=== PATIENT | female | born 1950 | race Caucasian/White ===

== ENCOUNTER 2019-04-21 12:53 | Inpatient (IN) | payer BC ==
[~2019-04-21] VITALS: Ht 162.6 cm; Wt 88.8 kg
[2019-04-21] MEDS ORDERED: ASPIRIN CHEWABLE 81 MG TABLET. PO ONE (15:00)
[2019-04-21 15:13] LABS: BASO % 0 % (0-3); EOS % 0 % (0-3); HEMATOCRIT 37.9 % (36.0-47.0); HEMOGLOBIN 12.9 g/dL (12.0-15.5); LYMPH # 1.2 x10^3/uL (1.0-4.8); LYMPH % 11 % (24-48); MEAN CORPUSCULAR HEMOGLOBIN 28 pg (25-35); MEAN CORPUSCULAR HGB CONC 34 g/dL (31-37); MEAN CORPUSCULAR VOLUME 82 fL (79-100); MONO # 0.5 x10^3/uL (0.0-1.1); MONO % 5 % (0-9); NEUT # 9.4 x10^3/uL (1.8-7.7); NEUT % 84 % (31-73); PLATELET COUNT 267 x10^3/uL (140-400); RED BLOOD COUNT 4.65 x10^6/uL (3.50-5.40); RED CELL DISTRIBUTION WIDTH 13.6 % (11.5-14.5); WHITE BLOOD COUNT 11.2 x10^3/uL (4.0-11.0)
[2019-04-21] MEDS ORDERED: MECLIZINE HCL 12.5 MG TABLET. PO ONE (15:15)
--- NOTE | 2019-04-21 15:16 | PHYS DOC ---
Past Medical History Past Medical History: Diabetes-Type II, High Cholesterol, Hypertension Past Surgical History: Appendectomy, Tonsillectomy, Tubal ligation, Other Additional Past Surgical Histo: BILATERAL KNEE REPLACEMENT, R ROTATOR CUFF SURGERY Smoking Status: Never Smoker Alcohol Use: None Adult General Chief Complaint Chief Complaint: HYPERTENSION HPI HPI Patient is a 68 year old female who presents with right shoulder pain that started at 10 AM this morning. She states that the pain has been shooting down her right arm and that she is having right hand numbness. The patient also re ports that she felt a lump on her sternum last night. She states is a for history of cancer in her family. The patient rates her pain a 7 out of 10 in severity and sharp. Denies any other symptoms. Review of Systems Review of Systems Constitutional: Denies fever or chills [] Eyes: Denies change in visual acuity, redness, or eye pain [] HENT: Denies nasal congestion or sore throat [] Respiratory: Denies cough or shortness of breath [] Cardiovascular: No additional information not addressed in HPI [] GI: Denies abdominal pain, nausea, vomiting, bloody stools or diarrhea [] : Denies dysuria or hematuria [] Musculoskeletal: Denies back pain or joint pain [] Integument: Denies rash or skin lesions [] Neurologic: Reports focal weakness and sensory changes in R arm. Denies headache. Complete systems were reviewed and found to be within normal limits, except as documented in this note. Current Medications Current Medications Current Medications Medications (Trade) Dose Ordered Sig/Eddy Start Time Stop Time Status Last Admin Dose Admin Acetaminophen (Tylenol) 650 mg PRN Q4HRS PRN 04/21/19 17:15 Albuterol Sulfate (Ventolin Neb Soln) 2.5 mg PRN Q4HRS PRN 04/21/19 17:15 UNV Aspirin (Children'S Aspirin) 324 mg 1X ONCE 04/21/19 15:00 04/21/19 15:09 DC 04/21/19 15:34 324 MG Docusate Sodium (Colace) 100 mg PRN BID PRN 04/21/19 17:15 UNV Enoxaparin Sodium (Lovenox 40mg Syringe) 40 mg Q24H 04/21/19 17:15 UNV Guaifenesin (Robitussin) 200 mg PRN Q4HRS PRN 04/21/19 17:15 UNV Lorazepam (Ativan) 0.5 mg PRN Q4HRS PRN 04/21/19 17:15 UNV Meclizine HCl (Antivert) 25 mg 1X ONCE 04/21/19 15:15 04/21/19 15:16 DC 04/21/19 15:34 25 MG Ondansetron HCl (Zofran) 4 mg PRN Q4HRS PRN 04/21/19 17:15 Allergies Allergies Allergies Coded Allergies Type Severity Reaction Last Updated Verified morphine Allergy Unknown 04/21/19 Yes Physical Exam Physical Exam Constitutional: Well developed, well nourished, no acute distress, non-toxic appearance. [] HENT: Normocephalic, atraumatic, bilateral external ears normal, oropharynx moist, no oral exudates, nose normal. [] Eyes: PERRLA, EOMI, conjunctiva normal, no discharge. [] Neck: Normal range of motion, no tenderness, supple, no stridor. [] Cardiovascular:Heart rate regular rhythm, no murmur [] Lungs & Thorax: Bilateral breath sounds clear to auscultation [] Abdomen: Bowel sounds normal, soft, no tenderness, no masses, no pulsatile masses. [] Skin: Warm, dry, no erythema, no rash. [] Back: No tenderness, no CVA tenderness. [] Extremities: No tenderness, no cyanosis, no clubbing, ROM intact, no edema. [] Neurologic: Alert and oriented X 3, normal motor function, normal sensory fun ction, no focal deficits noted. [] Psychologic: Affect normal, judgement normal, mood normal. [] Current Patient Data Vital Signs Vital Signs Date Time Temp Pulse Resp B/P (MAP) Pulse Ox O2 Delivery O2 Flow Rate FiO2 04/21/19 13:05 97.5 72 19 158/67 (97) 96 Room Air 97.5 Lab Values Laboratory Tests Test 04/21/19 14:45 04/21/19 15:00 Glucose (Fingerstick) 102 mg/dL (70-99) H White Blood Count 11.2 x10^3/uL (4.0-11.0) H Red Blood Count 4.65 x10^6/uL (3.50-5.40) Hemoglobin 12.9 g/dL (12.0-15.5) Hematocrit 37.9 % (36.0-47.0) Mean Corpuscular Volume 82 fL (79-100) Mean Corpuscular Hemoglobin 28 pg (25-35) Mean Corpuscular Hemoglobin Concent 34 g/dL (31-37) Red Cell Distribution Width 13.6 % (11.5-14.5) Platelet Count 267 x10^3/uL (140-400) Neutrophils (%) (Auto) 84 % (31-73) H Lymphocytes (%) (Auto) 11 % (24-48) L Monocytes (%) (Auto) 5 % (0-9) Eosinophils (%) (Auto) 0 % (0-3) Basophils (%) (Auto) 0 % (0-3) Neutrophils # (Auto) 9.4 x10^3/uL (1.8-7.7) H Lymphocytes # (Auto) 1.2 x10^3/uL (1.0-4.8) Monocytes # (Auto) 0.5 x10^3/uL (0.0-1.1) Eosinophils # (Auto) 0.0 x10^3/uL (0.0-0.7) Basophils # (Auto) 0.0 x10^3/uL (0.0-0.2) D-Dimer (Stephanie) 0.55 ug/mlFEU (0.00-0.50) H Sodium Level 134 mmol/L (136-145) L Potassium Level 3.6 mmol/L (3.5-5.1) Chloride Level 97 mmol/L (98-107) L Carbon Dioxide Level 27 mmol/L (21-32) Anion Gap 10 (6-14) Blood Urea Nitrogen 21 mg/dL (7-20) H Creatinine 0.5 mg/dL (0.6-1.0) L Estimated GFR (Cockcroft-Gault) 122.3 BUN/Creatinine Ratio 42 (6-20) H Glucose Level 103 mg/dL (70-99) H Calcium Level 9.1 mg/dL (8.5-10.1) Magnesium Level 1.7 mg/dL (1.8-2.4) L Total Bilirubin 0.4 mg/dL (0.2-1.0) Aspartate Amino Transferase (AST) 26 U/L (15-37) Alanine Aminotransferase (ALT) 23 U/L (14-59) Alkaline Phosphatase 73 U/L (46-116) Troponin I Quantitative < 0.017 ng/mL (0.000-0.055) Total Protein 6.7 g/dL (6.4-8.2) Albumin 3.9 g/dL (3.4-5.0) Albumin/Globulin Ratio 1.4 (1.0-1.7) Laboratory Tests 04/21/19 15:00 Laboratory Tests 04/21/19 15:00 EKG EKG EKG interpreted by Dr. Osmel Hanson with rate of 69.[] Radiology/Procedures Radiology/Procedures [facility] [address] [place] [address] IMAGING REPORT Signed PATIENT: FRANCES BENJAMINUNT: [id number] : 1950 LOCATION: ER AGE: 68 SEX: F EXAM STATUS: REG ER ORD. PHYSICIAN: LEON AIKEN APRN REASON: R arm weakness PROCEDURE: CT HEAD WO CONTRAST CT HEAD WO CONTRAST History: Right arm weakness Comparison: None. Technique: Noncontrast CT imaging was performed of the head. Exposure: One or more of the following individualized dose reduction techniques were utilized for this examination: 1. Automated exposure control 2. Adjustment of the mA and/or kV according to patient size 3. Use of iterative reconstruction technique. Findings: No acute extra-axial or parenchymal hemorrhage is identified. There is no significant intra-axial mass effect, midline shift, or extra-axial fluid collection. The castro-white differentiation of the major vascular territories is preserved. The ventricles, sulci, and cisterns are within normal limits in size and configuration. There is mild ill-defined low-density of the supratentorial parenchyma bilaterally such as of the bilateral frontal white matter. The mastoid air cells and the visualized paranasal sinuses are aerated. No acute calvarial abnormality is identified. There is some atherosclerotic calcification of the carotid siphons bilaterally. Impression: 1. No acute intracranial abnormality is identified. 2. There is mild scattered ill-defined low-density such as of the bilateral frontal deep white matter, nonspecific findings possibly due to chronic microvascular ischemic disease. If there is clinical concern for recent or evolving ischemia, MRI could be beneficial. Electronically signed by: Wilmar Chow MD (04/21/2019 3:39 PM) [id number] DICTATED and SIGNED BY: WILMAR CHOW MD DATE: 04/21/19 1539 [][facility] [address] [place] [address] IMAGING REPORT Signed PATIENT: FRANCES BENJAMIN JACCOUNT: [id number] : 1950 LOCATION: ER AGE: 68 SEX: F EXAM STATUS: REG ER ORD. PHYSICIAN: LEON AIKEN APRN REASON: R shoulder pain/atypical cp PROCEDURE: CHEST PA & LATERAL CHEST PA LATERAL History: Right shoulder pain, atypical chest pain FINDINGS: Cardiomediastinal silhouette is nonenlarged. No evidence of pneumothorax. No evidence of pleural effusion. No focal infiltrate. Bones appear intact. IMPRESSION: No evidence of consolidating infiltrate. Electronically signed by: Leon Saha MD (04/21/2019 3:27 PM) [id number] DICTATED and SIGNED BY: LEON SAHA MD DATE: 04/21/19 152 Course & Med Decision Making Course & Med Decision Making Pertinent Labs and Imaging studies reviewed. (See chart for details) We will obtain EKG, CT of the head, chest x-ray, labs. Labs are unremarkable for acute changes. D-dimer is 0.55 based off of symptoms with 0.55 unlikely to be PE. The clinical symptoms are concerning and will admit to the hospitalist for further work-up. Discussed case with Dr. Lazaro who agrees to admission to hospital. Dragon Disclaimer Dragon Disclaimer This electronic medical record was generated, in whole or in part, using a voice recognition dictation system. Departure Departure Impression: Primary Impression: Right arm weakness Additional Impression: Atypical chest pain Disposition: ADMITTED INPATIENT Admitting Physician: OLGA LIDIA Condition: STABLE Referrals: SARAY NIETO DO (PCP) The HEART Score for CP Pts HEART Score for Chest Pain: HEART Score for Chest Pain Response (Comments) Value History Moderately Suspicious 1 ECG Normal 0 Age > 65 2 Risk Factors 1 or 2 Risk Factors 1 Troponin < Normal Limit 0 Total 4 Risk Factors: Risk Factors: DM, Current or recent (<one month) smoker, HTN, HLP, family history of CAD, obesity. Risk Scores: Score 0 - 3: 2.5% MACE over next 6 weeks - Discharge Home Score 4 - 6: 20.3% MACE over next 6 weeks - Admit for Clinical Observation Score 7 - 10: 72.7% MACE over next 6 weeks - Early Invasive Strategies NIHSS Stroke Scale NIH Stroke Scale: NIH Stroke Scale Response (Comments) Value Level of Consciousness: 0 Alert/Responsive 0 LOC Questions: 0 Answers both correctly 0 LOC Commands: 0 Performs both tasks 0 Best Gaze: 0 Normal 0 Visual: 0 No visual loss 0 Facial Palsy: 0 Normal, symmetrical 0 Motor - Left Arm 0 No drift 0 Motor - Right Arm 1 Drifts but can hold 1 Motor - Left Leg 0 No drift 0 Motor: Right Leg 0 No drift 0 Limb Ataxia: 0 Absent 0 Sensory: 0 No loss 0 Best Language: 0 Normal 0 Dysathria: 0 Normal 0 Extinction and Inattention: 0 Normal 0 Total 1 Problem Qualifiers LEON AIKEN APRN Apr 21, 2019 15:16
--- NOTE | 2019-04-21 15:30 | RAD ---
CHEST PA LATERAL History: Right shoulder pain, atypical chest pain FINDINGS: Cardiomediastinal silhouette is nonenlarged. No evidence of pneumothorax. No evidence of pleural effusion. No focal infiltrate. Bones appear intact. IMPRESSION: No evidence of consolidating infiltrate. Electronically signed by: Leon Saha MD (04/21/2019 3:27 PM) [id number]
[2019-04-21 15:38] LABS: CALCIUM 9.1 mg/dL (8.5-10.1); CREATININE 0.5 mg/dL (0.6-1.0); GFR 122.3; POTASSIUM 3.6 mmol/L (3.5-5.1)
[2019-04-21 15:42] LABS: ALBUMIN 3.9 g/dL (3.4-5.0); ALBUMIN/GLOBULIN RATIO 1.4 (1.0-1.7); MAGNESIUM 1.7 mg/dL (1.8-2.4); TOTAL BILIRUBIN 0.4 mg/dL (0.2-1.0); TOTAL PROTEIN 6.7 g/dL (6.4-8.2)
--- NOTE | 2019-04-21 15:42 | RAD ---
CT HEAD WO CONTRAST History: Right arm weakness Comparison: None. Technique: Noncontrast CT imaging was performed of the head. Exposure: One or more of the following individualized dose reduction techniques were utilized for this examination: 1. Automated exposure control 2. Adjustment of the mA and/or kV according to patient size 3. Use of iterative reconstruction technique. Findings: No acute extra-axial or parenchymal hemorrhage is identified. There is no significant intra-axial mass effect, midline shift, or extra-axial fluid collection. The castro-white differentiation of the major vascular territories is preserved. The ventricles, sulci, and cisterns are within normal limits in size and configuration. There is mild ill-defined low-density of the supratentorial parenchyma bilaterally such as of the bilateral frontal white matter. The mastoid air cells and the visualized paranasal sinuses are aerated. No acute calvarial abnormality is identified. There is some atherosclerotic calcification of the carotid siphons bilaterally. Impression: 1. No acute intracranial abnormality is identified. 2. There is mild scattered ill-defined low-density such as of the bilateral frontal deep white matter, nonspecific findings possibly due to chronic microvascular ischemic disease. If there is clinical concern for recent or evolving ischemia, MRI could be beneficial. Electronically signed by: Darryl Morales MD (04/21/2019 3:39 PM) [id number]
[2019-04-21] MEDS ORDERED: guaiFENesin ORAL 200 MG/10 ML LIQUID. PO PRN (17:15)
[2019-04-21] MEDS ORDERED: ACETAMINOPHEN 325 MG TABLET. PO PRN (17:15)
[2019-04-21] MEDS ORDERED: DOCUSATE SODIUM 100 MG CAPSULE. PO PRN (17:15)
[2019-04-21] MEDS ORDERED: ALBUTEROL SULFATE 2.5 MG/3 ML NEBU. NEB PRN (17:15)
[2019-04-21] MEDS ORDERED: LORazepam 0.5 MG TABLET PO PRN (17:15)
[2019-04-21] MEDS ORDERED: fentaNYL PF VIAL 100 MCG/2 ML VIAL IV PRN (17:30)
[2019-04-21] MEDS ORDERED: ONDANSETRON PF 4 MG/2 ML VIAL. IV PRN (17:30)
[2019-04-21 17:37] LABS: PROTHROMBIN TIME PATIENT 12.2 SEC (11.7-14.0)
--- NOTE | 2019-04-21 18:42 | PDOC1 ---
History and Physical Date of Admission Date of Admission 04/21/2019 Identification/Chief Complaint Chief Complaint My shoulder hurts History of Present Illness History of Present Illness Patient is a 68-year-old female with past medical history of hypertension dyslipidemia hemoglobin A1c of 6.3 on metformin therapy for prediabetes. She was in her usual state of health until today when approximately at 10 AM she was helping a friend who is currently in hospice with her bath. She was assisting the hospice nurse take care of her friend. 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 The patient denies trauma falling she was able to have full range of motion yesterday symptoms started after he had the exertion while trying to care for her friend this morning. The patient did not present slurred speech no hemiparesis no hemiplegia and did get concerned due to some sensation of numbness in her arm that radiated all the way down to her hand especially when trying to AB duct her arm. At the present time the patient has an antalgic position and is unable to move her upper extremity past the horizontal plane. As per the ER physician they have requested a chest pain rule out evaluation and also neurological evaluation at this time. Patient is not having cardiac symptoms no orthopnea no paroxysmal nocturnal dyspnea, no chest discomfort no palpitations have been reported no recent upper respiratory tract infections no pleurisy no cough or sputum production has been reported no nausea vomiting diarrhea no lower extremity edema no other symptoms are related by the patient. Her main concern is her shoulder pain for which he has self medicated with ibuprofen with very little relief of her symptoms. She does suffer from chronic pain due to osteoarthritis she has 2 knee replacements. Results of her laboratory data and initial work-up has been related to the patient and reassurance has been provided. Plan of care explained in detail all of her concerns addressed to the best of my ability Current Problem List Problem List Problems Medical Problems: (1) Atypical chest pain Status: Acute (2) Right arm weakness Status: Acute Current Medications Current Medications Current Medications Medications (Trade) Dose Ordered Sig/Eddy Start Time Stop Time Status Last Admin Dose Admin Acetaminophen (Tylenol) 650 mg PRN Q4HRS PRN 04/21/19 17:15 Albuterol Sulfate (Ventolin Neb Soln) 2.5 mg PRN Q4HRS PRN 04/21/19 17:15 Aspirin (Children'S Aspirin) 324 mg 1X ONCE 04/21/19 15:00 04/21/19 15:09 DC 04/21/19 15:34 324 MG Docusate Sodium (Colace) 100 mg PRN BID PRN 04/21/19 17:15 Enoxaparin Sodium (Lovenox 40mg Syringe) 40 mg DAILY 04/22/19 09:00 Fentanyl Citrate (Fentanyl 2ml Vial) 50 mcg PRN Q1HR PRN 04/21/19 17:30 04/22/19 17:29 Guaifenesin (Robitussin) 200 mg PRN Q4HRS PRN 04/21/19 17:15 Lorazepam (Ativan) 0.5 mg PRN Q4HRS PRN 04/21/19 17:15 Meclizine HCl (Antivert) 25 mg 1X ONCE 04/21/19 15:15 04/21/19 15:16 DC 04/21/19 15:34 25 MG Ondansetron HCl (Zofran) 4 mg PRN Q8HRS PRN 04/21/19 17:30 04/22/19 17:29 Allergies Allergies Allergies Coded Allergies Type Severity Reaction Last Updated Verified morphine Allergy Unknown 04/21/19 Yes ROS Review of System CONSTITUTIONAL: No fever or chills EYES: No recent changes SKIN: No rash or itching CARDIOVASCULAR: No chest pain, syncope, palpitations, or edema RESPIRATORY: No SOB or cough GASTROINTESTINAL: No nausea, vomiting or abdominal pain NEUROLOGICAL: No headaches or weakness ENDOCRINE: No cold or heat intolerance GENITOURINARY: No urgency or frequency of urination MUSCULOSKELETAL: No back pain or joint pain LYMPHATICS: No enlarged lymph nodes PSYCHIATRIC: No anxiety or depression Physical Exam Physical Exam GEN.: No apparent distress. Alert and oriented. HEENT: Head is normocephalic, atraumatic NECK: Supple. LUNGS: Clear to auscultation. HEART: RRR, S1, S2 present. 2 out of 6 systolic murmur with no radiation to the carotids best heard over the second intercostal space right parasternal b order peripheral pulses intact ABDOMEN: Soft, nontender. Positive bowel sounds. EXTREMITIES: Without any cyanosis. Limited range of motion of the right upper extremity NEUROLOGIC: Normal speech, normal tone PSYCHIATRIC: Normal affect, normal mood. SKIN: No ulcerations Vitals Vitals Vital Signs Date Time Temp Pulse Resp B/P (MAP) Pulse Ox O2 Delivery O2 Flow Rate FiO2 04/21/19 13:05 97.5 72 19 158/67 (97) 96 Room Air 97.5 Labs Labs Laboratory Tests Test 04/21/19 14:45 04/21/19 15:00 Glucose (Fingerstick) 102 mg/dL (70-99) White Blood Count 11.2 x10^3/uL (4.0-11.0) Red Blood Count 4.65 x10^6/uL (3.50-5.40) Hemoglobin 12.9 g/dL (12.0-15.5) Hematocrit 37.9 % (36.0-47.0) Mean Corpuscular Volume 82 fL (79-100) Mean Corpuscular Hemoglobin 28 pg (25-35) Mean Corpuscular Hemoglobin Concent 34 g/dL (31-37) Red Cell Distribution Width 13.6 % (11.5-14.5) Platelet Count 267 x10^3/uL (140-400) Neutrophils (%) (Auto) 84 % (31-73) Lymphocytes (%) (Auto) 11 % (24-48) Monocytes (%) (Auto) 5 % (0-9) Eosinophils (%) (Auto) 0 % (0-3) Basophils (%) (Auto) 0 % (0-3) Neutrophils # (Auto) 9.4 x10^3/uL (1.8-7.7) Lymphocytes # (Auto) 1.2 x10^3/uL (1.0-4.8) Monocytes # (Auto) 0.5 x10^3/uL (0.0-1.1) Eosinophils # (Auto) 0.0 x10^3/uL (0.0-0.7) Basophils # (Auto) 0.0 x10^3/uL (0.0-0.2) Prothrombin Time 12.2 SEC (11.7-14.0) Prothromb Time International Ratio 0.9 (0.8-1.1) Activated Partial Thromboplast Time 28 SEC (24-38) D-Dimer (Stephanie) 0.55 ug/mlFEU (0.00-0.50) Sodium Level 134 mmol/L (136-145) Potassium Level 3.6 mmol/L (3.5-5.1) Chloride Level 97 mmol/L (98-107) Carbon Dioxide Level 27 mmol/L (21-32) Anion Gap 10 (6-14) Blood Urea Nitrogen 21 mg/dL (7-20) Creatinine 0.5 mg/dL (0.6-1.0) Estimated GFR (Cockcroft-Gault) 122.3 BUN/Creatinine Ratio 42 (6-20) Glucose Level 103 mg/dL (70-99) Calcium Level 9.1 mg/dL (8.5-10.1) Magnesium Level 1.7 mg/dL (1.8-2.4) Total Bilirubin 0.4 mg/dL (0.2-1.0) Aspartate Amino Transf (AST/SGOT) 26 U/L (15-37) Alanine Aminotransferase (ALT/SGPT) 23 U/L (14-59) Alkaline Phosphatase 73 U/L (46-116) Troponin I Quantitative < 0.017 ng/mL (0.000-0.055) Total Protein 6.7 g/dL (6.4-8.2) Albumin 3.9 g/dL (3.4-5.0) Albumin/Globulin Ratio 1.4 (1.0-1.7) Laboratory Tests Test 04/21/19 14:45 04/21/19 15:00 Glucose (Fingerstick) 102 mg/dL (70-99) White Blood Count 11.2 x10^3/uL (4.0-11.0) Red Blood Count 4.65 x10^6/uL (3.50-5.40) Hemoglobin 12.9 g/dL (12.0-15.5) Hematocrit 37.9 % (36.0-47.0) Mean Corpuscular Volume 82 fL (79-100) Mean Corpuscular Hemoglobin 28 pg (25-35) Mean Corpuscular Hemoglobin Concent 34 g/dL (31-37) Red Cell Distribution Width 13.6 % (11.5-14.5) Platelet Count 267 x10^3/uL (140-400) Neutrophils (%) (Auto) 84 % (31-73) Lymphocytes (%) (Auto) 11 % (24-48) Monocytes (%) (Auto) 5 % (0-9) Eosinophils (%) (Auto) 0 % (0-3) Basophils (%) (Auto) 0 % (0-3) Neutrophils # (Auto) 9.4 x10^3/uL (1.8-7.7) Lymphocytes # (Auto) 1.2 x10^3/uL (1.0-4.8) Monocytes # (Auto) 0.5 x10^3/uL (0.0-1.1) Eosinophils # (Auto) 0.0 x10^3/uL (0.0-0.7) Basophils # (Auto) 0.0 x10^3/uL (0.0-0.2) Prothrombin Time 12.2 SEC (11.7-14.0) Prothromb Time International Ratio 0.9 (0.8-1.1) Activated Partial Thromboplast Time 28 SEC (24-38) D-Dimer (Stephanie) 0.55 ug/mlFEU (0.00-0.50) Sodium Level 134 mmol/L (136-145) Potassium Level 3.6 mmol/L (3.5-5.1) Chloride Level 97 mmol/L (98-107) Carbon Dioxide Level 27 mmol/L (21-32) Anion Gap 10 (6-14) Blood Urea Nitrogen 21 mg/dL (7-20) Creatinine 0.5 mg/dL (0.6-1.0) Estimated GFR (Cockcroft-Gault) 122.3 BUN/Creatinine Ratio 42 (6-20) Glucose Level 103 mg/dL (70-99) Calcium Level 9.1 mg/dL (8.5-10.1) Magnesium Level 1.7 mg/dL (1.8-2.4) Total Bilirubin 0.4 mg/dL (0.2-1.0) Aspartate Amino Transf (AST/SGOT) 26 U/L (15-37) Alanine Aminotransferase (ALT/SGPT) 23 U/L (14-59) Alkaline Phosphatase 73 U/L (46-116) Troponin I Quantitative < 0.017 ng/mL (0.000-0.055) Total Protein 6.7 g/dL (6.4-8.2) Albumin 3.9 g/dL (3.4-5.0) Albumin/Globulin Ratio 1.4 (1.0-1.7) VTE Prophylaxis Ordered VTE Prophylaxis Devices: No VTE Pharmacological Prophylaxi: Yes Assessment/Plan Assessment/Plan Right shoulder pain Right upper extremity paresthesia associated with range of motion from the affected limb Mild hyponatremia without clinical significance Mild leukocytosis which may be reactive History of hypertension fairly controlled Dyslipidemia Prediabetes with a hemoglobin A1c of 6.3 Obesity with a BMI of 33 Plan Patient will be admitted for cardiac and neurological evaluation Resume home medications once available for review Pain management with Toradol and tizanidine Further recommendations based on the clinical course DVT prophylaxis with Lovenox DANNIELLE GARCIA MD Apr 21, 2019 18:42
--- NOTE | 2019-04-21 19:15 | NUR ---
Admit from ED via WC to [facility] room 260 A/O x 4. Family at bedside. Stood from in room and transferred self to bed with standby assist. Patient main complaint is right shoulder pain resulting in loss of ROM in that arm. Ice Pack placed on shoulder in ED and remains in place. Orientated to room and call light. Reviewed POC to include pain management for right arm/shoulder and lab draws such as troponin to R/O cardiac component. Verbalized understanding. Resting in bed with call light at hand.
[2019-04-21 19:30] VITALS: BP 171/70
[2019-04-21] MEDS ORDERED: MULT-650 PO (19:51)
[2019-04-21] MEDS ORDERED: CALC-496 PO (19:51)
[2019-04-21] MEDS ORDERED: ATOR20TA58 PO (19:51)
[2019-04-21] MEDS ORDERED: POTA99TA3 PO (19:51)
[2019-04-21] MEDS ORDERED: QUIN1TAB17 PO (19:51)
[2019-04-21] MEDS ORDERED: METF500T11 PO (19:51)
--- NOTE | 2019-04-21 20:24 | EKG ---
[facility] [address] [place] [address] Test Date: 2019-04-21 Test Time: 14:50:22 Pat Name: FRANCES BENJAMIN Department: Room: Gender: F Care Transition Coordinator: : 1950 Requested By: LITO AIKEN Order Number: [id number] Reading MD: Measurements Intervals [place] Rate: 69 P: 46 ME: 174 QRS: 3 QRSD: 106 T: 24 QT: 420 QTc: 452 Interpretive Statements SINUS RHYTHM NORMAL ECG RI6.01 No previous ECG available for comparison
[2019-04-21] MEDS: tiZANidine 4 MG TABLET. PO PRN (20:48)
[2019-04-21] MEDS: KETOROLAC 30 MG/ML VIAL. IVP PRN (20:51)
--- NOTE | 2019-04-21 22:54 | PDOC2 ---
NEUROLOGY CONSULT Date of Admission Date of Admission DATE: 04/21/19 TIME: 22:36 Reason for Consult Reason for Consult: IMPRESSION: Right UE numbness, weakness and pain.. HTN. HLD. DM. Obesity. RECOMMENDATIONS/PLAN: Pain control. Lab: see orders. Brain and C-spine MRI w/o contrast. Treat medical diseases. OT/PT. HISTORY OF THE PRESENT ILLNESS: This is a 68 -year-old female who presented to the ER of [facility] with complaints of right shoulder pain radiated to the entire UE to fingers associated with numbness and weakness started at 10 AM this morning. She states that the pain has been shooting down her right arm and that she is having right hand numbness. The patient also reports that she felt a lump on her sternum last night. The patient rates her pain a 7 out of 10 in severity and sharp. No symptoms of cranial nerves. her LE are not involved but she has chronic knee problem. PAST MEDICAL HISTORY: Diabetes-Type II, High Cholesterol, Hypertension PAST SURGERY HISTORY: Appendectomy, Tonsillectomy, Tubal ligation, BILATERAL KNEE REPLACEMENT, R ROTATOR CUFF SURGERY ALLERGY: Unknown MEDICATIONS: Refer to [facility] HISTORY: Non contributory. SOCIAL HISTORY: Lives at home. Denies current smoking, drinking or drug use. REVIEW OF SYSTEMS: Constitutional: Obesity. Head: No traumatic brain or head injury. Skin: No edema, or rash. Ear: No infection. Eyes: No vision loss or color blindness. Nose: No bleeding or purulent discharges. Hearing: Hearing decrease. Neck: No injury. Cardiac: HTN, HLD. Pulmonary: No COPD. GI: No GI ulcer, GI bleeding. Urinary/genital: UTI. Endocrinologic: Diabetes Mellitus, obesity. Skeletomuscular: No muscular atrophy, deformity. Neurological: see HP. Psychiatric: Denies drug use/abuse. Otherwise, not [id number] review of systems. PHYSICAL EXAMINATION: General appearance is in subacute distress. HEENT: Normocephalic and nontraumatic. Eyes, nose, ears, and throat are unremarkable. Neck is supple. No lymphadenopathy. No crepitus. Cardiovascular: S1, S2, regular rate and rhythm. Pulmonary: Clear to auscultation bilaterally. Abdomen: Bowel sounds are positive. Extremities: No rash, lesions, or edema. No restriction of range of motion NEUROLOGICAL EXAMINATION: Alert Oriented to time, place and person. PERRL. EOMI. CN: no focal findings. Muscle tone: within normal. Muscle strength: 4- right UE, 5 the rest. DTR: 1-2 Plantar reflex: Flexor response bilaterally Gait: not examined in bed. Sensory exam: Pain to exam in right UE. No cerebellar signs elicited. F-T-N test fine. Current Medications Current Medications Current Medications Aspirin (Children'S Aspirin) 324 mg 1X ONCE PO Last administered on 04/21/19at 15:34; Start 04/21/19 at 15:00; Stop 04/21/19 at 15:09; Status DC Meclizine HCl (Antivert) 25 mg 1X ONCE PO Last administered on 04/21/19at 15:34; Start 04/21/19 at 15:15; Stop 04/21/19 at 15:16; Status DC Ondansetron HCl (Zofran) 4 mg PRN Q4HRS PRN IV NAUSEA/VOMITING; Start 04/21/19 at 17:15 Acetaminophen (Tylenol) 650 mg PRN Q4HRS PRN PO TEMP OVER 100.4F OR MILD PAIN; Start 04/21/19 at 17:15 Docusate Sodium (Colace) 100 mg PRN BID PRN PO CONSTIPATION; Start 04/21/19 at 17:15 Albuterol Sulfate (Ventolin Neb Soln) 2.5 mg PRN Q4HRS PRN NEB SHORTNESS OF BREATH; Start 04/21/19 at 17:15 Guaifenesin (Robitussin) 200 mg PRN Q4HRS PRN PO COUGH; Start 04/21/19 at 17:15 Lorazepam (Ativan) 0.5 mg PRN Q4HRS PRN PO ANXIETY / AGITATION; Start 04/21/19 at 17:15 Enoxaparin Sodium (Lovenox 40mg Syringe) 40 mg DAILY SQ ; Start 04/22/19 at 09:00 Ondansetron HCl (Zofran) 4 mg PRN Q8HRS PRN IV NAUSEA/VOMITING; Start 04/21/19 at 17:30; Stop 04/22/19 at 17:29 Fentanyl Citrate (Fentanyl 2ml Vial) 50 mcg PRN Q1HR PRN IV PAIN; Start 04/21/19 at 17:30; Stop 3/13/20 at 17:29 Ketorolac Tromethamine (Toradol 30mg Vial) 30 mg PRN Q6HRS PRN IVP MODERATE PAIN Last administered on 04/21/19at 20:51; Start 04/21/19 at 19:00; Stop 04/26/19 at 18:59 Tizanidine HCl (Zanaflex) 4 mg PRN Q8HRS PRN PO MUSCLE SPASMS Last administered on 04/21/19at 20:48; Start 04/21/19 at 19:00 Active Scripts Active Reported Potassium Gluconate 99 Mg Tablet 99 Mg PO DAILY Centrum Silver Women Tablet (Multivits-Min/Iron/FA/Lutein) 1 Each Tablet 1 Each PO QHS Calcium 600 + Vit D3 Tablet (Calcium Carbonate/Vitamin D3) 1 Each Tablet 2 Tab PO QHS 30 Days Atorvastatin Calcium 20 Mg Tablet 1 Tab PO QHS Quinapril-Hctz 20-25 Mg Tab (Quinapril/Hydrochlorothiazide) 1 Each Tablet 1 Tab PO DAILY 30 Days Metformin Hcl Er (Metformin Hcl) 500 Mg Tab.er.24h 500 Mg PO DAILYWSUP Allergies Allergies: Allergies Coded Allergies Type Severity Reaction Last Updated Verified morphine Allergy Unknown 04/21/19 Yes ROS Review of System The patient denies any associated fevers, chills, headache, ear pain, rhinorrhea, sore throat, stiff neck, productive cough, chest pain, shortness of breath, back or flank pain, abdominal pain, nausea, vomiting, diarrhea, constipation, dysuria, rash, numbness, weakness, tingling, incontinence, difficulty ambulating, or diaphoresis. Physical Exam Physical Exam General: Well developed, well nourished, no acute distress, well appearing HEENT: Pupils equally round and reactive to light, EOMI, no discharge, normal conjunctiva Neck: Supple, no nuchal rigidity, no JVD, trachea midline, no tenderness Cardiac: RRR, no murmurs, no gallops, no rubs Chest/Lungs: CTAB, no wheeze, no rhonchi, no crackles Abdomen: soft, non-distended, no guarding, no peritoneal signs, non-tender Back: No tenderness Extremities: no edema, pulses intact, non-tender,capillary refill <3 sec bilateral upper and lower extremities, Neuro: Alert and oriented x 4, no focal deficits, normal speech Vitals Vitals: Vital Signs Date Time Temp Pulse Resp B/P (MAP) Pulse Ox O2 Delivery O2 Flow Rate FiO2 04/21/19 20:00 Room Air 04/21/19 19:03 74 182/78 (112) 98 04/21/19 13:05 97.5 19 97.5 Labs Labs Laboratory Tests Test 04/21/19 14:45 04/21/19 15:00 04/21/19 20:00 Glucose (Fingerstick) 102 mg/dL (70-99) White Blood Count 11.2 x10^3/uL (4.0-11.0) Red Blood Count 4.65 x10^6/uL (3.50-5.40) Hemoglobin 12.9 g/dL (12.0-15.5) Hematocrit 37.9 % (36.0-47.0) Mean Corpuscular Volume 82 fL (79-100) Mean Corpuscular Hemoglobin 28 pg (25-35) Mean Corpuscular Hemoglobin Concent 34 g/dL (31-37) Red Cell Distribution Width 13.6 % (11.5-14.5) Platelet Count 267 x10^3/uL (140-400) Neutrophils (%) (Auto) 84 % (31-73) Lymphocytes (%) (Auto) 11 % (24-48) Monocytes (%) (Auto) 5 % (0-9) Eosinophils (%) (Auto) 0 % (0-3) Basophils (%) (Auto) 0 % (0-3) Neutrophils # (Auto) 9.4 x10^3/uL (1.8-7.7) Lymphocytes # (Auto) 1.2 x10^3/uL (1.0-4.8) Monocytes # (Auto) 0.5 x10^3/uL (0.0-1.1) Eosinophils # (Auto) 0.0 x10^3/uL (0.0-0.7) Basophils # (Auto) 0.0 x10^3/uL (0.0-0.2) Prothrombin Time 12.2 SEC (11.7-14.0) Prothromb Time International Ratio 0.9 (0.8-1.1) Activated Partial Thromboplast Time 28 SEC (24-38) D-Dimer (Stephanie) 0.55 ug/mlFEU (0.00-0.50) Sodium Level 134 mmol/L (136-145) Potassium Level 3.6 mmol/L (3.5-5.1) Chloride Level 97 mmol/L (98-107) Carbon Dioxide Level 27 mmol/L (21-32) Anion Gap 10 (6-14) Blood Urea Nitrogen 21 mg/dL (7-20) Creatinine 0.5 mg/dL (0.6-1.0) Estimated GFR (Cockcroft-Gault) 122.3 BUN/Creatinine Ratio 42 (6-20) Glucose Level 103 mg/dL (70-99) Calcium Level 9.1 mg/dL (8.5-10.1) Magnesium Level 1.7 mg/dL (1.8-2.4) Total Bilirubin 0.4 mg/dL (0.2-1.0) Aspartate Amino Transf (AST/SGOT) 26 U/L (15-37) Alanine Aminotransferase (ALT/SGPT) 23 U/L (14-59) Alkaline Phosphatase 73 U/L (46-116) Troponin I Quantitative < 0.017 ng/mL (0.000-0.055) < 0.017 ng/mL (0.000-0.055) Total Protein 6.7 g/dL (6.4-8.2) Albumin 3.9 g/dL (3.4-5.0) Albumin/Globulin Ratio 1.4 (1.0-1.7) Laboratory Tests Test 04/21/19 14:45 04/21/19 15:00 04/21/19 20:00 Glucose (Fingerstick) 102 mg/dL (70-99) White Blood Count 11.2 x10^3/uL (4.0-11.0) Red Blood Count 4.65 x10^6/uL (3.50-5.40) Hemoglobin 12.9 g/dL (12.0-15.5) Hematocrit 37.9 % (36.0-47.0) Mean Corpuscular Volume 82 fL (79-100) Mean Corpuscular Hemoglobin 28 pg (25-35) Mean Corpuscular Hemoglobin Concent 34 g/dL (31-37) Red Cell Distribution Width 13.6 % (11.5-14.5) Platelet Count 267 x10^3/uL (140-400) Neutrophils (%) (Auto) 84 % (31-73) Lymphocytes (%) (Auto) 11 % (24-48) Monocytes (%) (Auto) 5 % (0-9) Eosinophils (%) (Auto) 0 % (0-3) Basophils (%) (Auto) 0 % (0-3) Neutrophils # (Auto) 9.4 x10^3/uL (1.8-7.7) Lymphocytes # (Auto) 1.2 x10^3/uL (1.0-4.8) Monocytes # (Auto) 0.5 x10^3/uL (0.0-1.1) Eosinophils # (Auto) 0.0 x10^3/uL (0.0-0.7) Basophils # (Auto) 0.0 x10^3/uL (0.0-0.2) Prothrombin Time 12.2 SEC (11.7-14.0) Prothromb Time International Ratio 0.9 (0.8-1.1) Activated Partial Thromboplast Time 28 SEC (24-38) D-Dimer (Stephanie) 0.55 ug/mlFEU (0.00-0.50) Sodium Level 134 mmol/L (136-145) Potassium Level 3.6 mmol/L (3.5-5.1) Chloride Level 97 mmol/L (98-107) Carbon Dioxide Level 27 mmol/L (21-32) Anion Gap 10 (6-14) Blood Urea Nitrogen 21 mg/dL (7-20) Creatinine 0.5 mg/dL (0.6-1.0) Estimated GFR (Cockcroft-Gault) 122.3 BUN/Creatinine Ratio 42 (6-20) Glucose Level 103 mg/dL (70-99) Calcium Level 9.1 mg/dL (8.5-10.1) Magnesium Level 1.7 mg/dL (1.8-2.4) Total Bilirubin 0.4 mg/dL (0.2-1.0) Aspartate Amino Transf (AST/SGOT) 26 U/L (15-37) Alanine Aminotransferase (ALT/SGPT) 23 U/L (14-59) Alkaline Phosphatase 73 U/L (46-116) Troponin I Quantitative < 0.017 ng/mL (0.000-0.055) < 0.017 ng/mL (0.000-0.055) Total Protein 6.7 g/dL (6.4-8.2) Albumin 3.9 g/dL (3.4-5.0) Albumin/Globulin Ratio 1.4 (1.0-1.7) PRAMOD DOIR MD Apr 21, 2019 22:54
[2019-04-21 23:20] VITALS: BP 140/69
[2019-04-22] VITALS (8 sets, daily range): BP systolic 129–170; BP diastolic 60–74
[2019-04-22] MEDS: KETOROLAC 30 MG/ML VIAL. IVP PRN ×4 (03:21→23:21)
[2019-04-22] MEDS: tiZANidine 4 MG TABLET. PO PRN ×3 (05:47→21:04)
[2019-04-22] MEDS: ONDANSETRON PF 4 MG/2 ML VIAL. IV PRN ×2 (05:52→15:24)
[2019-04-22 06:30] LABS: CHOLESTEROL/HDL RATIO 3.1
--- NOTE | 2019-04-22 08:25 | PDOC2 ---
NATALIO FRENCH TIE WORKER 04/22/19 0825: CARDIAC CONSULT DATE OF CONSULT Date of Consult DATE: 04/22/19 TIME: 08:18 REASON FOR CONSULT Reason for Consult: Atypical Chest pain REFERRING PHYSICIAN Referring Physician: Adela SOURCE Source: Chart review, Patient HISTORY OF PRESENT ILLNESS HISTORY OF PRESENT ILLNESS This is a pleasant 68 yo female admitted for complains of 68 yo female admitted for complains of right arm and shoulder discomfort. She has been helping her sister who has terminal illness and supporting her when she walks with walker but no heavy lifting. Yesterday she was helping her put her socks and shoes on and did not feel a pop at that time but several minutes later felt some knot in her right shoulder. She did have RTC repair in 2017. No recent falls or injury or MVA. She is not able to lift her arm above her shoulder and positive for drop arm test. Some numbness to right arm but no sort of chest and completely denies this. Consult is for atypical chest pain. She rides stationary bike daily 5 miles each time without difficulty. She is functional and complains no exertional CP nor MERCADO. Denies any hx of CAD, VTE. No focal neuro symptoms. PAST MEDICAL HISTORY Cardiovascular: HTN, Hyperlipidemia Pulmonary: No pertinent hx CENTRAL NERVOUS SYSTEM: Vertigo ([place]) GI: No pertinent hx Heme/Onc: No pertinent hx Hepatobiliary: No pertinent hx Psych: No pertinent hx Musculoskeletal: Osteoarthritis Rheumatologic: No pertinent hx Infectious disease: No pertinent hx ENT: No pertinent hx Renal/: No pertinent hx Endocrine: Diabetes (2) PAST SURGICAL HISTORY Past Surgical History: Appendectomy, Arthroscopy (right RTC repair), Total knee replacement (bilateral ), Tonsillectomy, Other (tubal ligation; left trigger finger surgery) SOCIAL HISTORY Smoke: No ALCOHOL: none Drugs: None Lives: with Family CURRENT MEDICATIONS CURRENT MEDICATIONS Current Medications Medications (Trade) Dose Ordered Sig/Eddy Route PRN Reason Start Time Stop Time Status Last Admin Dose Admin Aspirin (Children'S Aspirin) 324 mg 1X ONCE PO 04/21/19 15:00 04/21/19 15:09 DC 04/21/19 15:34 Meclizine HCl (Antivert) 25 mg 1X ONCE PO 04/21/19 15:15 04/21/19 15:16 DC 04/21/19 15:34 Ondansetron HCl (Zofran) 4 mg PRN Q4HRS PRN IV NAUSEA/VOMITING 04/21/19 17:15 04/22/19 05:52 Acetaminophen (Tylenol) 650 mg PRN Q4HRS PRN PO TEMP OVER 100.4F OR MILD PAIN 04/21/19 17:15 04/22/19 03:21 Ketorolac Tromethamine (Toradol 30mg Vial) 30 mg PRN Q6HRS PRN IVP MODERATE PAIN 04/21/19 19:00 04/26/19 18:59 04/22/19 03:21 Tizanidine HCl (Zanaflex) 4 mg PRN Q8HRS PRN PO MUSCLE SPASMS 04/21/19 19:00 04/22/19 05:47 ALLERGIES ALLERGIES: Coded Allergies: morphine (Verified Allergy, Intermediate, 04/21/19) ROS Review of System 14 point ROS evaluated with pertinent positives noted per HPI PHYSICAL EXAM General: Alert, Oriented X3, Cooperative, No acute distress HEENT: Atraumatic, Mucous membr. moist/pink Lungs: Clear to auscultation, Normal air movement Heart: Regular rate (SR), Normal S1, Normal S2, Other (2/6 systolic murmur to LLS border) Extremities: No cyanosis, No edema Skin: No breakdown, No significant lesion Neuro: Normal speech, Sensation intact Psych/Mental Status: Mental status NL, Mood NL MUSCULOSKELETAL: Osteoarthritic changes both hands, Other (limited L shoulder ROM) VITALS/I&O VITALS/I&O: Vital Signs Date Time Temp Pulse Resp B/P (MAP) Pulse Ox O2 Delivery O2 Flow Rate FiO2 04/22/19 03:27 97.7 55 18 153/68 (96) Room Air 97.7 04/21/19 23:20 97 I & O 04/21/19 04/21/19 04/22/19 15:00 23:00 07:00 Intake Total 300 ml 60 ml Output Total 200 ml 1000 ml Balance 100 ml -940 ml LABS Lab: Laboratory Tests Test 04/21/19 14:45 04/21/19 15:00 04/21/19 20:00 04/22/19 00:15 Glucose (Fingerstick) 102 mg/dL (70-99) H White Blood Count 11.2 x10^3/uL (4.0-11.0) H Red Blood Count 4.65 x10^6/uL (3.50-5.40) Hemoglobin 12.9 g/dL (12.0-15.5) Hematocrit 37.9 % (36.0-47.0) Mean Corpuscular Volume 82 fL (79-100) Mean Corpuscular Hemoglobin 28 pg (25-35) Mean Corpuscular Hemoglobin Concent 34 g/dL (31-37) Red Cell Distribution Width 13.6 % (11.5-14.5) Platelet Count 267 x10^3/uL (140-400) Neutrophils (%) (Auto) 84 % (31-73) H Lymphocytes (%) (Auto) 11 % (24-48) L Monocytes (%) (Auto) 5 % (0-9) Eosinophils (%) (Auto) 0 % (0-3) Basophils (%) (Auto) 0 % (0-3) Neutrophils # (Auto) 9.4 x10^3/uL (1.8-7.7) H Lymphocytes # (Auto) 1.2 x10^3/uL (1.0-4.8) Monocytes # (Auto) 0.5 x10^3/uL (0.0-1.1) Eosinophils # (Auto) 0.0 x10^3/uL (0.0-0.7) Basophils # (Auto) 0.0 x10^3/uL (0.0-0.2) Prothrombin Time 12.2 SEC (11.7-14.0) Prothrombin Time INR 0.9 (0.8-1.1) Activated Partial Thromboplast Time 28 SEC (24-38) D-Dimer (Stephanie) 0.55 ug/mlFEU (0.00-0.50) H Sodium Level 134 mmol/L (136-145) L Potassium Level 3.6 mmol/L (3.5-5.1) Chloride Level 97 mmol/L (98-107) L Carbon Dioxide Level 27 mmol/L (21-32) Anion Gap 10 (6-14) Blood Urea Nitrogen 21 mg/dL (7-20) H Creatinine 0.5 mg/dL (0.6-1.0) L Estimated GFR (Cockcroft-Gault) 122.3 BUN/Creatinine Ratio 42 (6-20) H Glucose Level 103 mg/dL (70-99) H Calcium Level 9.1 mg/dL (8.5-10.1) Magnesium Level 1.7 mg/dL (1.8-2.4) L Total Bilirubin 0.4 mg/dL (0.2-1.0) Aspartate Amino Transferase (AST) 26 U/L (15-37) Alanine Aminotransferase (ALT) 23 U/L (14-59) Alkaline Phosphatase 73 U/L (46-116) Troponin I Quantitative < 0.017 ng/mL (0.000-0.055) < 0.017 ng/mL (0.000-0.055) < 0.017 ng/mL (0.000-0.055) Total Protein 6.7 g/dL (6.4-8.2) Albumin 3.9 g/dL (3.4-5.0) Albumin/Globulin Ratio 1.4 (1.0-1.7) Test 04/22/19 02:00 04/22/19 08:08 Triglycerides Level 54 mg/dL (0-150) Cholesterol Level 163 mg/dL (0-200) LDL Cholesterol, Calculated 99 mg/dL (0-100) VLDL Cholesterol, Calculated 11 mg/dL (0-40) Non-HDL Cholesterol Calculated 110 mg/dL (0-129) HDL Cholesterol 53 mg/dL (40-60) Cholesterol/HDL Ratio 3.1 Thyroid Stimulating Hormone (TSH) 0.886 uIU/mL (0.358-3.74) Glucose (Fingerstick) 133 mg/dL (70-99) H Laboratory Tests 04/21/19 15:00 Laboratory Tests 04/21/19 15:00 ASSESSMENT/PLAN ASSESSMENT/PLAN 1. Atypical chest pain: trops nml. EKG NSR. Noncardiac. completely denies CP 2. Right shoulder weakness/pain: suspect RTC tear with prior hx of RTC repair 3. HTN: labile 4. HLP 5. DM2; on metformin Recommendations 1. Recommend shoulder MRI defer to PCP 2. May restart home ACEi/HCTZ and statin 3. Nothing cardiac crystal. DORETHA JIN MD 04/22/19 1996: CARDIAC CONSULT ASSESSMENT/PLAN ASSESSMENT/PLAN Patient seen and examined Original reports of atypical chest pain. Patient denies any chest pain yesterday or today. Troponins are normal 3. EKG has no ischemic changes. We'll continue on medications for hypertension. Right shoulder weakness and pain. Workup in progress including a radiology testing. Labile hypertension. Resume home medications and monitor. Hyperlipidemia. Statin. Diabetes mellitus. On metformin. As per the primary service. Thank you for allowing us to participate in the care of your patient. NATALIO FRENCH APRN Apr 22, 2019 08:25 DORETHA JIN MD Apr 22, 2019 17:51
[2019-04-22 08:38] LABS: CALCIUM 9.1 mg/dL (8.5-10.1); CREATININE 0.5 mg/dL (0.6-1.0); GFR 122.3
--- NOTE | 2019-04-22 08:58 | PDOC ---
PROGRESS NOTES Assessment Problems Medical Problems: (1) Atypical chest pain Status: Acute (2) Right arm weakness Status: Acute Right UE numbness, weakness and pain, suspect brachial plexopathy. no recent infection or immunization to qualify as [place] syndrome. HTN. HLD. DM. Obesity. Plan Pain control. Lab: see orders. Brain, C-spine, right brachial plexus MRI w/o contrast. Depending on results will consider a steroid taper Physical and occupational therapy Consider home later today or tomorrow depending on results. Discussed with patient and OT/PT. Subjective Pain is better Objective Vital Signs Date Time Temp Pulse Resp B/P (MAP) Pulse Ox O2 Delivery O2 Flow Rate FiO2 04/22/19 03:27 97.7 55 18 153/68 (96) Room Air 97.7 04/21/19 23:20 97 Intake and Output 04/22/19 07:00 Intake Total 360 ml Output Total 1200 ml Balance -840 ml Intake Oral 360 ml Output Urine Total 1200 ml PHYSICAL EXAM Alert. Oriented to time, place and person. PERRL. EOMI. CN: no focal findings. Muscle tone: normal. Muscle strength: 3/5 right arm, proximal and distal DTR: 1+ Plantar reflex: flexor Gait: not examined in bed. Sensory exam: hypesthesia, entire right upper extremity to shoulder No cerebellar signs elicited. Review of Relevant I have reviewed the following items alecia (where applicable) has been applied. Labs Laboratory Tests Test 04/21/19 14:45 04/21/19 15:00 04/21/19 20:00 04/22/19 00:15 Glucose (Fingerstick) 102 mg/dL (70-99) White Blood Count 11.2 x10^3/uL (4.0-11.0) Red Blood Count 4.65 x10^6/uL (3.50-5.40) Hemoglobin 12.9 g/dL (12.0-15.5) Hematocrit 37.9 % (36.0-47.0) Mean Corpuscular Volume 82 fL (79-100) Mean Corpuscular Hemoglobin 28 pg (25-35) Mean Corpuscular Hemoglobin Concent 34 g/dL (31-37) Red Cell Distribution Width 13.6 % (11.5-14.5) Platelet Count 267 x10^3/uL (140-400) Neutrophils (%) (Auto) 84 % (31-73) Lymphocytes (%) (Auto) 11 % (24-48) Monocytes (%) (Auto) 5 % (0-9) Eosinophils (%) (Auto) 0 % (0-3) Basophils (%) (Auto) 0 % (0-3) Neutrophils # (Auto) 9.4 x10^3/uL (1.8-7.7) Lymphocytes # (Auto) 1.2 x10^3/uL (1.0-4.8) Monocytes # (Auto) 0.5 x10^3/uL (0.0-1.1) Eosinophils # (Auto) 0.0 x10^3/uL (0.0-0.7) Basophils # (Auto) 0.0 x10^3/uL (0.0-0.2) Prothrombin Time 12.2 SEC (11.7-14.0) Prothromb Time International Ratio 0.9 (0.8-1.1) Activated Partial Thromboplast Time 28 SEC (24-38) D-Dimer (Stephanie) 0.55 ug/mlFEU (0.00-0.50) Sodium Level 134 mmol/L (136-145) Potassium Level 3.6 mmol/L (3.5-5.1) Chloride Level 97 mmol/L (98-107) Carbon Dioxide Level 27 mmol/L (21-32) Anion Gap 10 (6-14) Blood Urea Nitrogen 21 mg/dL (7-20) Creatinine 0.5 mg/dL (0.6-1.0) Estimated GFR (Cockcroft-Gault) 122.3 BUN/Creatinine Ratio 42 (6-20) Glucose Level 103 mg/dL (70-99) Calcium Level 9.1 mg/dL (8.5-10.1) Magnesium Level 1.7 mg/dL (1.8-2.4) Total Bilirubin 0.4 mg/dL (0.2-1.0) Aspartate Amino Transf (AST/SGOT) 26 U/L (15-37) Alanine Aminotransferase (ALT/SGPT) 23 U/L (14-59) Alkaline Phosphatase 73 U/L (46-116) Troponin I Quantitative < 0.017 ng/mL (0.000-0.055) < 0.017 ng/mL (0.000-0.055) < 0.017 ng/mL (0.000-0.055) Total Protein 6.7 g/dL (6.4-8.2) Albumin 3.9 g/dL (3.4-5.0) Albumin/Globulin Ratio 1.4 (1.0-1.7) Test 04/22/19 02:00 04/22/19 08:08 Sodium Level 136 mmol/L (136-145) Potassium Level 3.0 mmol/L (3.5-5.1) Chloride Level 97 mmol/L (98-107) Carbon Dioxide Level 26 mmol/L (21-32) Anion Gap 13 (6-14) Blood Urea Nitrogen 13 mg/dL (7-20) Creatinine 0.5 mg/dL (0.6-1.0) Estimated GFR (Cockcroft-Gault) 122.3 Glucose Level 104 mg/dL (70-99) Calcium Level 9.1 mg/dL (8.5-10.1) Magnesium Level 2.0 mg/dL (1.8-2.4) Triglycerides Level 54 mg/dL (0-150) Cholesterol Level 163 mg/dL (0-200) LDL Cholesterol, Calculated 99 mg/dL (0-100) VLDL Cholesterol, Calculated 11 mg/dL (0-40) Non-HDL Cholesterol Calculated 110 mg/dL (0-129) HDL Cholesterol 53 mg/dL (40-60) Cholesterol/HDL Ratio 3.1 Thyroid Stimulating Hormone (TSH) 0.886 uIU/mL (0.358-3.74) Glucose (Fingerstick) 133 mg/dL (70-99) Laboratory Tests Test 04/21/19 14:45 04/21/19 15:00 04/21/19 20:00 04/22/19 00:15 Glucose (Fingerstick) 102 mg/dL (70-99) White Blood Count 11.2 x10^3/uL (4.0-11.0) Red Blood Count 4.65 x10^6/uL (3.50-5.40) Hemoglobin 12.9 g/dL (12.0-15.5) Hematocrit 37.9 % (36.0-47.0) Mean Corpuscular Volume 82 fL (79-100) Mean Corpuscular Hemoglobin 28 pg (25-35) Mean Corpuscular Hemoglobin Concent 34 g/dL (31-37) Red Cell Distribution Width 13.6 % (11.5-14.5) Platelet Count 267 x10^3/uL (140-400) Neutrophils (%) (Auto) 84 % (31-73) Lymphocytes (%) (Auto) 11 % (24-48) Monocytes (%) (Auto) 5 % (0-9) Eosinophils (%) (Auto) 0 % (0-3) Basophils (%) (Auto) 0 % (0-3) Neutrophils # (Auto) 9.4 x10^3/uL (1.8-7.7) Lymphocytes # (Auto) 1.2 x10^3/uL (1.0-4.8) Monocytes # (Auto) 0.5 x10^3/uL (0.0-1.1) Eosinophils # (Auto) 0.0 x10^3/uL (0.0-0.7) Basophils # (Auto) 0.0 x10^3/uL (0.0-0.2) Prothrombin Time 12.2 SEC (11.7-14.0) Prothromb Time International Ratio 0.9 (0.8-1.1) Activated Partial Thromboplast Time 28 SEC (24-38) D-Dimer (Stephanie) 0.55 ug/mlFEU (0.00-0.50) Sodium Level 134 mmol/L (136-145) Potassium Level 3.6 mmol/L (3.5-5.1) Chloride Level 97 mmol/L (98-107) Carbon Dioxide Level 27 mmol/L (21-32) Anion Gap 10 (6-14) Blood Urea Nitrogen 21 mg/dL (7-20) Creatinine 0.5 mg/dL (0.6-1.0) Estimated GFR (Cockcroft-Gault) 122.3 BUN/Creatinine Ratio 42 (6-20) Glucose Level 103 mg/dL (70-99) Calcium Level 9.1 mg/dL (8.5-10.1) Magnesium Level 1.7 mg/dL (1.8-2.4) Total Bilirubin 0.4 mg/dL (0.2-1.0) Aspartate Amino Transf (AST/SGOT) 26 U/L (15-37) Alanine Aminotransferase (ALT/SGPT) 23 U/L (14-59) Alkaline Phosphatase 73 U/L (46-116) Troponin I Quantitative < 0.017 ng/mL (0.000-0.055) < 0.017 ng/mL (0.000-0.055) < 0.017 ng/mL (0.000-0.055) Total Protein 6.7 g/dL (6.4-8.2) Albumin 3.9 g/dL (3.4-5.0) Albumin/Globulin Ratio 1.4 (1.0-1.7) Test 04/22/19 02:00 04/22/19 08:08 Sodium Level 136 mmol/L (136-145) Potassium Level 3.0 mmol/L (3.5-5.1) Chloride Level 97 mmol/L (98-107) Carbon Dioxide Level 26 mmol/L (21-32) Anion Gap 13 (6-14) Blood Urea Nitrogen 13 mg/dL (7-20) Creatinine 0.5 mg/dL (0.6-1.0) Estimated GFR (Cockcroft-Gault) 122.3 Glucose Level 104 mg/dL (70-99) Calcium Level 9.1 mg/dL (8.5-10.1) Magnesium Level 2.0 mg/dL (1.8-2.4) Triglycerides Level 54 mg/dL (0-150) Cholesterol Level 163 mg/dL (0-200) LDL Cholesterol, Calculated 99 mg/dL (0-100) VLDL Cholesterol, Calculated 11 mg/dL (0-40) Non-HDL Cholesterol Calculated 110 mg/dL (0-129) HDL Cholesterol 53 mg/dL (40-60) Cholesterol/HDL Ratio 3.1 Thyroid Stimulating Hormone (TSH) 0.886 uIU/mL (0.358-3.74) Glucose (Fingerstick) 133 mg/dL (70-99) Medications Current Medications Aspirin (Children'S Aspirin) 324 mg 1X ONCE PO Last administered on 04/21/19at 15:34; Start 04/21/19 at 15:00; Stop 04/21/19 at 15:09; Status DC Meclizine HCl (Antivert) 25 mg 1X ONCE PO Last administered on 04/21/19at 15:34; Start 04/21/19 at 15:15; Stop 04/21/19 at 15:16; Status DC Ondansetron HCl (Zofran) 4 mg PRN Q4HRS PRN IV NAUSEA/VOMITING Last administered on 04/22/19at 05:52; Start 04/21/19 at 17:15 Acetaminophen (Tylenol) 650 mg PRN Q4HRS PRN PO TEMP OVER 100.4F OR MILD PAIN Last administered on 04/22/19at 03:21; Start 04/21/19 at 17:15 Docusate Sodium (Colace) 100 mg PRN BID PRN PO CONSTIPATION; Start 04/21/19 at 17:15 Albuterol Sulfate (Ventolin Neb Soln) 2.5 mg PRN Q4HRS PRN NEB SHORTNESS OF BREATH; Start 04/21/19 at 17:15 Guaifenesin (Robitussin) 200 mg PRN Q4HRS PRN PO COUGH; Start 04/21/19 at 17:15 Lorazepam (Ativan) 0.5 mg PRN Q4HRS PRN PO ANXIETY / AGITATION; Start 04/21/19 at 17:15 Enoxaparin Sodium (Lovenox 40mg Syringe) 40 mg DAILY SQ ; Start 04/22/19 at 09:00 Ondansetron HCl (Zofran) 4 mg PRN Q8HRS PRN IV NAUSEA/VOMITING; Start 04/21/19 at 17:30; Stop 04/22/19 at 17:29 Fentanyl Citrate (Fentanyl 2ml Vial) 50 mcg PRN Q1HR PRN IV PAIN; Start 04/21/19 at 17:30; Stop 04/22/19 at 17:29 Ketorolac Tromethamine (Toradol 30mg Vial) 30 mg PRN Q6HRS PRN IVP MODERATE PAIN Last administered on 04/22/19at 03:21; Start 04/21/19 at 19:00; Stop 04/26/19 at 18:59 Tizanidine HCl (Zanaflex) 4 mg PRN Q8HRS PRN PO MUSCLE SPASMS Last administered on 04/22/19at 05:47; Start 04/21/19 at 19:00 Aspirin (Franko Aspirin) 325 mg DAILYWBKFT PO ; Start 04/22/19 at 08:00 Active Scripts Active Reported Potassium Gluconate 99 Mg Tablet 99 Mg PO DAILY Centrum Silver Women Tablet (Multivits-Min/Iron/FA/Lutein) 1 Each Tablet 1 Each PO QHS Calcium 600 + Vit D3 Tablet (Calcium Carbonate/Vitamin D3) 1 Each Tablet 2 Tab PO QHS 30 Days Atorvastatin Calcium 20 Mg Tablet 1 Tab PO QHS Quinapril-Hctz 20-25 Mg Tab (Quinapril/Hydrochlorothiazide) 1 Each Tablet 1 Tab PO DAILY 30 Days Metformin Hcl Er (Metformin Hcl) 500 Mg Tab.er.24h 500 Mg PO DAILYWSUP Vitals/I & O Vital Sign - Last 24 Hours 04/21/19 04/21/19 04/21/19 04/21/19 13:05 14:39 15:33 16:03 Temp 97.5 97.5 Pulse 72 68 Resp 19 B/P (MAP) 158/67 (97) 191/74 (113) 184/74 (110) 161/72 (101) Pulse Ox 96 98 O2 Delivery Room Air Room Air 04/21/19 04/21/19 04/21/19 04/21/19 16:33 17:03 17:33 18:03 Pulse 68 66 66 68 B/P (MAP) 171/74 (106) 164/70 (101) 168/72 (104) 189/77 (114) Pulse Ox 98 97 97 99 O2 Delivery Room Air Room Air Room Air Room Air 04/21/19 04/21/19 04/21/19 04/21/19 18:33 19:03 19:30 20:00 Temp 97.3 97.3 Pulse 64 74 68 Resp 18 B/P (MAP) 187/79 (115) 182/78 (112) 171/70 (103) Pulse Ox 98 98 97 O2 Delivery Room Air Room Air Room Air Room Air 04/21/19 04/22/19 23:20 03:27 Temp 97.5 97.7 97.5 97.7 Pulse 67 55 Resp 18 18 B/P (MAP) 140/69 (92) 153/68 (96) Pulse Ox 97 O2 Delivery Room Air Room Air Intake and Output 04/21/19 04/21/19 04/22/19 15:00 23:00 07:00 Intake Total 300 ml 60 ml Output Total 200 ml 1000 ml Balance 100 ml -940 ml BRENT SULLIVAN MD Apr 22, 2019 08:58
[2019-04-22] MEDS ORDERED: POTASSIUM CHLORIDE 20 MEQ TABLET.ER. PO ONE (09:15)
[2019-04-22] MEDS: ASPIRIN 325 MG TABLET PO SCH (10:05)
[2019-04-22] MEDS: ENOXAPARIN 40 MG/0.4 ML SYRINGE. SQ SCH (10:07)
--- NOTE | 2019-04-22 11:55 | PDOC ---
PROGRESS NOTES Chief Complaint Chief Complaint Right UE numbness, weakness and pain, suspect brachial plexopathy. no recent infection or immunization to qualify as [place] syndrome. HTN. HLD. DM. Obesity. BMI 34 History of Present Illness History of Present Illness MRI pending PT and OT as able pain Ok, poor ROM dc soon if neuro eval OK Vitals Vitals Vital Signs Date Time Temp Pulse Resp B/P (MAP) Pulse Ox O2 Delivery O2 Flow Rate FiO2 04/22/19 07:00 97.8 56 18 129/60 (83) 95 Room Air 97.8 Physical Exam General: Alert, Oriented X3, Cooperative, No acute distress Heart: Regular rate (SR), Normal S1, Normal S2 Lungs: Other Extremities: No cyanosis, No edema Skin: No breakdown, No significant lesion Labs LABS Laboratory Tests Test 04/21/19 14:45 04/21/19 15:00 04/21/19 20:00 04/22/19 00:15 Glucose (Fingerstick) 102 mg/dL (70-99) White Blood Count 11.2 x10^3/uL (4.0-11.0) Red Blood Count 4.65 x10^6/uL (3.50-5.40) Hemoglobin 12.9 g/dL (12.0-15.5) Hematocrit 37.9 % (36.0-47.0) Mean Corpuscular Volume 82 fL (79-100) Mean Corpuscular Hemoglobin 28 pg (25-35) Mean Corpuscular Hemoglobin Concent 34 g/dL (31-37) Red Cell Distribution Width 13.6 % (11.5-14.5) Platelet Count 267 x10^3/uL (140-400) Neutrophils (%) (Auto) 84 % (31-73) Lymphocytes (%) (Auto) 11 % (24-48) Monocytes (%) (Auto) 5 % (0-9) Eosinophils (%) (Auto) 0 % (0-3) Basophils (%) (Auto) 0 % (0-3) Neutrophils # (Auto) 9.4 x10^3/uL (1.8-7.7) Lymphocytes # (Auto) 1.2 x10^3/uL (1.0-4.8) Monocytes # (Auto) 0.5 x10^3/uL (0.0-1.1) Eosinophils # (Auto) 0.0 x10^3/uL (0.0-0.7) Basophils # (Auto) 0.0 x10^3/uL (0.0-0.2) Prothrombin Time 12.2 SEC (11.7-14.0) Prothromb Time International Ratio 0.9 (0.8-1.1) Activated Partial Thromboplast Time 28 SEC (24-38) D-Dimer (Stephanie) 0.55 ug/mlFEU (0.00-0.50) Sodium Level 134 mmol/L (136-145) Potassium Level 3.6 mmol/L (3.5-5.1) Chloride Level 97 mmol/L (98-107) Carbon Dioxide Level 27 mmol/L (21-32) Anion Gap 10 (6-14) Blood Urea Nitrogen 21 mg/dL (7-20) Creatinine 0.5 mg/dL (0.6-1.0) Estimated GFR (Cockcroft-Gault) 122.3 BUN/Creatinine Ratio 42 (6-20) Glucose Level 103 mg/dL (70-99) Calcium Level 9.1 mg/dL (8.5-10.1) Magnesium Level 1.7 mg/dL (1.8-2.4) Total Bilirubin 0.4 mg/dL (0.2-1.0) Aspartate Amino Transf (AST/SGOT) 26 U/L (15-37) Alanine Aminotransferase (ALT/SGPT) 23 U/L (14-59) Alkaline Phosphatase 73 U/L (46-116) Troponin I Quantitative < 0.017 ng/mL (0.000-0.055) < 0.017 ng/mL (0.000-0.055) < 0.017 ng/mL (0.000-0.055) Total Protein 6.7 g/dL (6.4-8.2) Albumin 3.9 g/dL (3.4-5.0) Albumin/Globulin Ratio 1.4 (1.0-1.7) Test 04/22/19 02:00 04/22/19 08:08 Sodium Level 136 mmol/L (136-145) Potassium Level 3.0 mmol/L (3.5-5.1) Chloride Level 97 mmol/L (98-107) Carbon Dioxide Level 26 mmol/L (21-32) Anion Gap 13 (6-14) Blood Urea Nitrogen 13 mg/dL (7-20) Creatinine 0.5 mg/dL (0.6-1.0) Estimated GFR (Cockcroft-Gault) 122.3 Glucose Level 104 mg/dL (70-99) Calcium Level 9.1 mg/dL (8.5-10.1) Magnesium Level 2.0 mg/dL (1.8-2.4) Triglycerides Level 54 mg/dL (0-150) Cholesterol Level 163 mg/dL (0-200) LDL Cholesterol, Calculated 99 mg/dL (0-100) VLDL Cholesterol, Calculated 11 mg/dL (0-40) Non-HDL Cholesterol Calculated 110 mg/dL (0-129) HDL Cholesterol 53 mg/dL (40-60) Cholesterol/HDL Ratio 3.1 Vitamin B12 Level 305 pg/mL (247-911) Thyroid Stimulating Hormone (TSH) 0.886 uIU/mL (0.358-3.74) Glucose (Fingerstick) 133 mg/dL (70-99) Assessment and Plan Assessmemt and Plan Problems Medical Problems: (1) Atypical chest pain Status: Acute (2) Right arm weakness Status: Acute Comment Review of Relevant I have reviewed the following items alecia (where applicable) has been applied. Labs Laboratory Tests Test 04/21/19 14:45 04/21/19 15:00 04/21/19 20:00 04/22/19 00:15 Glucose (Fingerstick) 102 mg/dL (70-99) White Blood Count 11.2 x10^3/uL (4.0-11.0) Red Blood Count 4.65 x10^6/uL (3.50-5.40) Hemoglobin 12.9 g/dL (12.0-15.5) Hematocrit 37.9 % (36.0-47.0) Mean Corpuscular Volume 82 fL (79-100) Mean Corpuscular Hemoglobin 28 pg (25-35) Mean Corpuscular Hemoglobin Concent 34 g/dL (31-37) Red Cell Distribution Width 13.6 % (11.5-14.5) Platelet Count 267 x10^3/uL (140-400) Neutrophils (%) (Auto) 84 % (31-73) Lymphocytes (%) (Auto) 11 % (24-48) Monocytes (%) (Auto) 5 % (0-9) Eosinophils (%) (Auto) 0 % (0-3) Basophils (%) (Auto) 0 % (0-3) Neutrophils # (Auto) 9.4 x10^3/uL (1.8-7.7) Lymphocytes # (Auto) 1.2 x10^3/uL (1.0-4.8) Monocytes # (Auto) 0.5 x10^3/uL (0.0-1.1) Eosinophils # (Auto) 0.0 x10^3/uL (0.0-0.7) Basophils # (Auto) 0.0 x10^3/uL (0.0-0.2) Prothrombin Time 12.2 SEC (11.7-14.0) Prothromb Time International Ratio 0.9 (0.8-1.1) Activated Partial Thromboplast Time 28 SEC (24-38) D-Dimer (Stephanie) 0.55 ug/mlFEU (0.00-0.50) Sodium Level 134 mmol/L (136-145) Potassium Level 3.6 mmol/L (3.5-5.1) Chloride Level 97 mmol/L (98-107) Carbon Dioxide Level 27 mmol/L (21-32) Anion Gap 10 (6-14) Blood Urea Nitrogen 21 mg/dL (7-20) Creatinine 0.5 mg/dL (0.6-1.0) Estimated GFR (Cockcroft-Gault) 122.3 BUN/Creatinine Ratio 42 (6-20) Glucose Level 103 mg/dL (70-99) Calcium Level 9.1 mg/dL (8.5-10.1) Magnesium Level 1.7 mg/dL (1.8-2.4) Total Bilirubin 0.4 mg/dL (0.2-1.0) Aspartate Amino Transf (AST/SGOT) 26 U/L (15-37) Alanine Aminotransferase (ALT/SGPT) 23 U/L (14-59) Alkaline Phosphatase 73 U/L (46-116) Troponin I Quantitative < 0.017 ng/mL (0.000-0.055) < 0.017 ng/mL (0.000-0.055) < 0.017 ng/mL (0.000-0.055) Total Protein 6.7 g/dL (6.4-8.2) Albumin 3.9 g/dL (3.4-5.0) Albumin/Globulin Ratio 1.4 (1.0-1.7) Test 04/22/19 02:00 04/22/19 08:08 Sodium Level 136 mmol/L (136-145) Potassium Level 3.0 mmol/L (3.5-5.1) Chloride Level 97 mmol/L (98-107) Carbon Dioxide Level 26 mmol/L (21-32) Anion Gap 13 (6-14) Blood Urea Nitrogen 13 mg/dL (7-20) Creatinine 0.5 mg/dL (0.6-1.0) Estimated GFR (Cockcroft-Gault) 122.3 Glucose Level 104 mg/dL (70-99) Calcium Level 9.1 mg/dL (8.5-10.1) Magnesium Level 2.0 mg/dL (1.8-2.4) Triglycerides Level 54 mg/dL (0-150) Cholesterol Level 163 mg/dL (0-200) LDL Cholesterol, Calculated 99 mg/dL (0-100) VLDL Cholesterol, Calculated 11 mg/dL (0-40) Non-HDL Cholesterol Calculated 110 mg/dL (0-129) HDL Cholesterol 53 mg/dL (40-60) Cholesterol/HDL Ratio 3.1 Vitamin B12 Level 305 pg/mL (247-911) Thyroid Stimulating Hormone (TSH) 0.886 uIU/mL (0.358-3.74) Glucose (Fingerstick) 133 mg/dL (70-99) Laboratory Tests Test 04/21/19 14:45 04/21/19 15:00 04/21/19 20:00 04/22/19 00:15 Glucose (Fingerstick) 102 mg/dL (70-99) White Blood Count 11.2 x10^3/uL (4.0-11.0) Red Blood Count 4.65 x10^6/uL (3.50-5.40) Hemoglobin 12.9 g/dL (12.0-15.5) Hematocrit 37.9 % (36.0-47.0) Mean Corpuscular Volume 82 fL (79-100) Mean Corpuscular Hemoglobin 28 pg (25-35) Mean Corpuscular Hemoglobin Concent 34 g/dL (31-37) Red Cell Distribution Width 13.6 % (11.5-14.5) Platelet Count 267 x10^3/uL (140-400) Neutrophils (%) (Auto) 84 % (31-73) Lymphocytes (%) (Auto) 11 % (24-48) Monocytes (%) (Auto) 5 % (0-9) Eosinophils (%) (Auto) 0 % (0-3) Basophils (%) (Auto) 0 % (0-3) Neutrophils # (Auto) 9.4 x10^3/uL (1.8-7.7) Lymphocytes # (Auto) 1.2 x10^3/uL (1.0-4.8) Monocytes # (Auto) 0.5 x10^3/uL (0.0-1.1) Eosinophils # (Auto) 0.0 x10^3/uL (0.0-0.7) Basophils # (Auto) 0.0 x10^3/uL (0.0-0.2) Prothrombin Time 12.2 SEC (11.7-14.0) Prothromb Time International Ratio 0.9 (0.8-1.1) Activated Partial Thromboplast Time 28 SEC (24-38) D-Dimer (Stephanie) 0.55 ug/mlFEU (0.00-0.50) Sodium Level 134 mmol/L (136-145) Potassium Level 3.6 mmol/L (3.5-5.1) Chloride Level 97 mmol/L (98-107) Carbon Dioxide Level 27 mmol/L (21-32) Anion Gap 10 (6-14) Blood Urea Nitrogen 21 mg/dL (7-20) Creatinine 0.5 mg/dL (0.6-1.0) Estimated GFR (Cockcroft-Gault) 122.3 BUN/Creatinine Ratio 42 (6-20) Glucose Level 103 mg/dL (70-99) Calcium Level 9.1 mg/dL (8.5-10.1) Magnesium Level 1.7 mg/dL (1.8-2.4) Total Bilirubin 0.4 mg/dL (0.2-1.0) Aspartate Amino Transf (AST/SGOT) 26 U/L (15-37) Alanine Aminotransferase (ALT/SGPT) 23 U/L (14-59) Alkaline Phosphatase 73 U/L (46-116) Troponin I Quantitative < 0.017 ng/mL (0.000-0.055) < 0.017 ng/mL (0.000-0.055) < 0.017 ng/mL (0.000-0.055) Total Protein 6.7 g/dL (6.4-8.2) Albumin 3.9 g/dL (3.4-5.0) Albumin/Globulin Ratio 1.4 (1.0-1.7) Test 04/22/19 02:00 04/22/19 08:08 Sodium Level 136 mmol/L (136-145) Potassium Level 3.0 mmol/L (3.5-5.1) Chloride Level 97 mmol/L (98-107) Carbon Dioxide Level 26 mmol/L (21-32) Anion Gap 13 (6-14) Blood Urea Nitrogen 13 mg/dL (7-20) Creatinine 0.5 mg/dL (0.6-1.0) Estimated GFR (Cockcroft-Gault) 122.3 Glucose Level 104 mg/dL (70-99) Calcium Level 9.1 mg/dL (8.5-10.1) Magnesium Level 2.0 mg/dL (1.8-2.4) Triglycerides Level 54 mg/dL (0-150) Cholesterol Level 163 mg/dL (0-200) LDL Cholesterol, Calculated 99 mg/dL (0-100) VLDL Cholesterol, Calculated 11 mg/dL (0-40) Non-HDL Cholesterol Calculated 110 mg/dL (0-129) HDL Cholesterol 53 mg/dL (40-60) Cholesterol/HDL Ratio 3.1 Vitamin B12 Level 305 pg/mL (247-911) Thyroid Stimulating Hormone (TSH) 0.886 uIU/mL (0.358-3.74) Glucose (Fingerstick) 133 mg/dL (70-99) Medications Current Medications Aspirin (Children'S Aspirin) 324 mg 1X ONCE PO Last administered on 04/21/19at 15:34; Start 04/21/19 at 15:00; Stop 04/21/19 at 15:09; Status DC Meclizine HCl (Antivert) 25 mg 1X ONCE PO Last administered on 04/21/19at 15:34; Start 04/21/19 at 15:15; Stop 04/21/19 at 15:16; Status DC Ondansetron HCl (Zofran) 4 mg PRN Q4HRS PRN IV NAUSEA/VOMITING Last administered on 04/22/19at 05:52; Start 04/21/19 at 17:15 Acetaminophen (Tylenol) 650 mg PRN Q4HRS PRN PO TEMP OVER 100.4F OR MILD PAIN Last administered on 04/22/19at 03:21; Start 04/21/19 at 17:15 Docusate Sodium (Colace) 100 mg PRN BID PRN PO CONSTIPATION; Start 04/21/19 at 17:15 Albuterol Sulfate (Ventolin Neb Soln) 2.5 mg PRN Q4HRS PRN NEB SHORTNESS OF BREATH; Start 04/21/19 at 17:15 Guaifenesin (Robitussin) 200 mg PRN Q4HRS PRN PO COUGH; Start 04/21/19 at 17:15 Lorazepam (Ativan) 0.5 mg PRN Q4HRS PRN PO ANXIETY / AGITATION; Start 04/21/19 at 17:15 Enoxaparin Sodium (Lovenox 40mg Syringe) 40 mg DAILY SQ Last administered on 04/22/19at 10:07; Start 04/22/19 at 09:00 Ondansetron HCl (Zofran) 4 mg PRN Q8HRS PRN IV NAUSEA/VOMITING; Start 04/21/19 at 17:30; Stop 04/22/19 at 17:29 Fentanyl Citrate (Fentanyl 2ml Vial) 50 mcg PRN Q1HR PRN IV PAIN; Start 04/09 03/31 at 17:30; Stop 04/22/19 at 17:29 Ketorolac Tromethamine (Toradol 30mg Vial) 30 mg PRN Q6HRS PRN IVP MODERATE PAIN Last administered on 04/22/19at 10:04; Start 04/21/19 at 19:00; Stop 04/26/19 at 18:59 Tizanidine HCl (Zanaflex) 4 mg PRN Q8HRS PRN PO MUSCLE SPASMS Last administered on 04/22/19at 05:47; Start 04/21/19 at 19:00 Aspirin (Franko Aspirin) 325 mg DAILYWBKFT PO Last administered on 04/22/19at 10:05; Start 04/22/19 at 08:00 Potassium Chloride (Klor-Con) 40 meq 1X ONCE PO Last administered on 04/22/19at 10:06; Start 04/22/19 at 09:15; Stop 04/22/19 at 09:16; Status DC Active Scripts Active Reported Potassium Gluconate 99 Mg Tablet 99 Mg PO DAILY Centrum Silver Women Tablet (Multivits-Min/Iron/FA/Lutein) 1 Each Tablet 1 Each PO QHS Calcium 600 + Vit D3 Tablet (Calcium Carbonate/Vitamin D3) 1 Each Tablet 2 Tab PO QHS 30 Days Atorvastatin Calcium 20 Mg Tablet 1 Tab PO QHS Quinapril-Hctz 20-25 Mg Tab (Quinapril/Hydrochlorothiazide) 1 Each Tablet 1 Tab PO DAILY 30 Days Metformin Hcl Er (Metformin Hcl) 500 Mg Tab.er.24h 500 Mg PO DAILYWSUP Vitals/I & O Vital Sign - Last 24 Hours 04/21/19 04/21/19 04/21/19 04/21/19 13:05 14:39 15:33 16:03 Temp 97.5 97.5 Pulse 72 68 Resp 19 B/P (MAP) 158/67 (97) 191/74 (113) 184/74 (110) 161/72 (101) Pulse Ox 96 98 O2 Delivery Room Air Room Air 04/21/19 04/21/19 04/21/19 04/21/19 16:33 17:03 17:33 18:03 Pulse 68 66 66 68 B/P (MAP) 171/74 (106) 164/70 (101) 168/72 (104) 189/77 (114) Pulse Ox 98 97 97 99 O2 Delivery Room Air Room Air Room Air Room Air 04/21/19 04/21/19 04/21/19 04/21/19 18:33 19:03 19:30 20:00 Temp 97.3 97.3 Pulse 64 74 68 Resp 18 B/P (MAP) 187/79 (115) 182/78 (112) 171/70 (103) Pulse Ox 98 98 97 O2 Delivery Room Air Room Air Room Air Room Air 04/21/19 04/22/19 04/22/19 23:20 03:27 07:00 Temp 97.5 97.7 97.8 97.5 97.7 97.8 Pulse 67 55 56 Resp 18 18 18 B/P (MAP) 140/69 (92) 153/68 (96) 129/60 (83) Pulse Ox 97 95 O2 Delivery Room Air Room Air Room Air Intake and Output 04/21/19 04/21/19 04/22/19 15:00 23:00 07:00 Intake Total 300 ml 60 ml Output Total 200 ml 1000 ml Balance 100 ml -940 ml MALICK RDZ MD Apr 22, 2019 11:55
--- NOTE | 2019-04-22 12:52 | NUR ---
SS following for discharge planning. SS reviewed pt chart. Pt is from home with spouse and is currently on room air. PT/OT recommended home. SS will continue to follow for discharge planning.
--- NOTE | 2019-04-22 14:28 | RAD ---
MRI Brain without contrast History: Right upper extremity numbness, weakness, pain Technique: Multiplanar, multisequential noncontrast MR imaging was performed of the brain. Comparison: Head CT April 21, 2019, no previous MRI brain available Findings: There is no evidence of recent infarct or intracranial mass effect or midline shift. Ventricular size is within normal limits. There is mild prominence of biparietal subarachnoid spaces which may be mild involutional change. There are multiple scattered foci of T2 and FLAIR hyperintense signal abnormality of the supratentorial parenchyma bilaterally, overall mild to moderate signal abnormality present. A few clustered foci of the right frontal lobe have a somewhat perpendicular orientation relative to the lateral ventricle and there is mild subcortical U fiber involvement of the left posterior temporal lobe. There is patchy minimal ethmoid air cell mucosal thickening. There is minimal fluid and thickening of the right mastoid air cells. There is preservation of the major arterial intracranial flow voids at the skull base. Cerebellar tonsils are normal in location. Pituitary gland is small. There is preserved marrow signal of the clivus. There is no significant abnormality of the pineal gland. Impression: 1. There is no evidence of recent infarct or intracranial mass effect. There is scattered multifocal T2 and FLAIR hyperintense signal abnormality of the supratentorial parenchyma bilaterally. Nonspecific findings could be due to chronic microvascular ischemic disease especially if risk factors such as hypertension or diabetes. Sequela of inflammatory demyelinating disease cannot be excluded. Electronically signed by: Darryl Morales MD (04/22/2019 2:26 PM) [id number]
--- NOTE | 2019-04-22 16:02 | RAD ---
EXAMINATION: Magnetic resonance imaging (MRI) of the cervical spine and brachial plexus without contrast 04/22/2019 8:54 AM HISTORY: Right upper extremity pain and numbness. TECHNIQUE: Multiplanar multi-weighted MRI of the cervical spine and brachial plexus was performed without intravenous contrast. Contrast information: None administered COMPARISON: None available. FINDINGS: The alignment of the cervical spine is normal. Vertebral bodies demonstrate normal signal intensity on all sequences. No acute fracture is identified; however, if trauma is suspected, a CT scan would be a more sensitive examination for fractures. The craniocervical junction is normal. The visualized portions of the skull base and the posterior fossa are normal. The spinal cord demonstrates normal signal intensity on all sequences. Disc heights are maintained. There is disc desiccation at all levels of the cervical spine with disc bulges from C3-C4 through C5-C6. No soft tissue abnormality is identified. Normal signal voids are present in the vertebral arteries. C2-C3: The disk is normal in configuration. There is no facet arthropathy. There is no uncovertebral joint disease. There is no neuroforaminal stenosis. There is no spinal canal stenosis. C3-C4: There is a posterior disc osteophyte complex with central disc extrusion. There is mild facet arthropathy. No uncovertebral joint disease. No neuroforaminal stenosis. Mild spinal canal stenosis with minimal indentation the ventral cord. No cord signal alteration. Findings are exacerbated by ligamentum flavum infolding. C4-C5: There is a posterior disc osteophyte complex. Mild facet arthropathy and uncovertebral joint disease. Mild bilateral neuroforaminal stenosis. Mild spinal canal stenosis without deformity of the cord or cord signal alteration. There is segmental flavum infolding. C5-C6: There is a posterior discussed by complex with central disc protrusion. There is mild facet arthropathy. Mild left neuroforaminal stenosis. Mild spinal canal stenosis without deformity of the cord or cord signal alteration. Limited film infolding. C6-C7: The disk is normal in configuration. There is no facet arthropathy. There is no uncovertebral joint disease. There is no neuroforaminal stenosis. There is no spinal canal stenosis. C7-T1: The disk is normal in configuration. There is no facet arthropathy. There is no uncovertebral joint disease. There is no neuroforaminal stenosis. There is no spinal canal stenosis. Brachial plexus: Roots, trunks, divisions, cords and branches of the right brachial plexus appear intact. Scalene musculature appears normal in signal intensity. No cervical rib. Marrow signal intensity is normal in appearance. Postoperative changes are identified along the right humerus. There is a small right glenohumeral joint effusion. Mild cervical spondylosis, as described in detail above. There is a normal interest healing triangle, costoclavicular space, and rectum pectoralis minor space mild to moderate osteoarthrosis of the acromioclavicular joint. No vascular abnormality or mass is identified. IMPRESSION: Mild degenerative changes of the cervical spine as described in detail above. No significant abnormality involving the right brachial plexus. Electronically signed by: Shellie Flores MD (04/22/2019 3:59 PM) [id number]
[2019-04-22] MEDS: predniSONE 20 MG TABLET PO SCH (17:26)
[2019-04-22] MEDS ORDERED: metFORMIN XR 500 MG TAB.ER.24H PO SCH (20:00)
[2019-04-22] MEDS ORDERED: CALCIUM CARB/VIT D3 500/200 TABLET. PO SCH (21:00)
[2019-04-22] MEDS ORDERED: ATORVASTATIN CALCIUM 20 MG TABLET PO SCH (21:00)
[2019-04-22] MEDS ORDERED: hydroCHLOROthiazide 25 MG TABLET PO SCH ×2 (21:30→22:00)
[2019-04-22] MEDS ORDERED: LISINOPRIL 20 MG TABLET PO SCH (22:00)
[2019-04-23] MEDS: ASPIRIN 325 MG TABLET PO SCH (08:00)
[2019-04-23] MEDS ORDERED: hydroCHLOROthiazide 25 MG TABLET PO SCH (09:00)
[2019-04-23] MEDS ORDERED: NON FORMULARY ITEM (Potassium Gluconate 99 MG) PO SCH (09:00)
[2019-04-23] MEDS: ENOXAPARIN 40 MG/0.4 ML SYRINGE. SQ SCH (09:00)
[2019-04-23] MEDS ORDERED: MULTIVITAMIN with MINERAL TABLET. PO SCH (09:00)
[2019-04-23] MEDS: predniSONE 20 MG TABLET PO SCH (09:00)
[2019-04-23 11:00] VITALS: BP 148/67
--- NOTE | 2019-04-23 11:35 | NUR ---
RN Note: See downtime documentation of MAR
[2019-04-23] MEDS ORDERED: ASPI325T8 PO (11:58)
--- NOTE | 2019-04-23 13:10 | NUR ---
Discharge Note: FRANCES BENJAMIN [address] Discharge instructions and discharge home medications reviewed with Patient and a copy given. All questions have been answered and understanding verbalized. Instructions on prednisone taper given to patient. Discontinued lines and drains: Peripheral IV intact. Patient discharged to Home or Self Care with Self via Wheelchair
--- NOTE | 2019-04-23 13:56 | PDOC3 ---
Discharge Summary Visit Information Date of Admission: Apr 21, 2019 Date of Discharge: Apr 23, 2019 Final Diagnosis Right UE numbness, weakness and pain, suspect brachial plexopathy. no recent infection or immunization to qualify as [place] Faust syndrome. HTN. HLD. DM. Obesity. BMI 34 Vitals Problems Medical Problems: (1) Atypical chest pain Status: Acute (2) Right arm weakness Status: Acute Brief Hospital Course Allergies Allergies Coded Allergies Type Severity Reaction Last Updated Verified morphine Allergy Intermediate 04/21/19 Yes Vital Signs Vital Signs Date Time Temp Pulse Resp B/P (MAP) Pulse Ox O2 Delivery O2 Flow Rate FiO2 04/23/19 11:00 97.7 63 18 148/67 (94) 94 Room Air 97.7 Lab Results Laboratory Tests Test 04/21/19 14:45 04/21/19 15:00 04/21/19 20:00 04/22/19 00:15 Glucose (Fingerstick) 102 mg/dL (70-99) White Blood Count 11.2 x10^3/uL (4.0-11.0) Red Blood Count 4.65 x10^6/uL (3.50-5.40) Hemoglobin 12.9 g/dL (12.0-15.5) Hematocrit 37.9 % (36.0-47.0) Mean Corpuscular Volume 82 fL (79-100) Mean Corpuscular Hemoglobin 28 pg (25-35) Mean Corpuscular Hemoglobin Concent 34 g/dL (31-37) Red Cell Distribution Width 13.6 % (11.5-14.5) Platelet Count 267 x10^3/uL (140-400) Neutrophils (%) (Auto) 84 % (31-73) Lymphocytes (%) (Auto) 11 % (24-48) Monocytes (%) (Auto) 5 % (0-9) Eosinophils (%) (Auto) 0 % (0-3) Basophils (%) (Auto) 0 % (0-3) Neutrophils # (Auto) 9.4 x10^3/uL (1.8-7.7) Lymphocytes # (Auto) 1.2 x10^3/uL (1.0-4.8) Monocytes # (Auto) 0.5 x10^3/uL (0.0-1.1) Eosinophils # (Auto) 0.0 x10^3/uL (0.0-0.7) Basophils # (Auto) 0.0 x10^3/uL (0.0-0.2) Prothrombin Time 12.2 SEC (11.7-14.0) Prothromb Time International Ratio 0.9 (0.8-1.1) Activated Partial Thromboplast Time 28 SEC (24-38) D-Dimer (Stephanie) 0.55 ug/mlFEU (0.00-0.50) Sodium Level 134 mmol/L (136-145) Potassium Level 3.6 mmol/L (3.5-5.1) Chloride Level 97 mmol/L (98-107) Carbon Dioxide Level 27 mmol/L (21-32) Anion Gap 10 (6-14) Blood Urea Nitrogen 21 mg/dL (7-20) Creatinine 0.5 mg/dL (0.6-1.0) Estimated GFR (Cockcroft-Gault) 122.3 BUN/Creatinine Ratio 42 (6-20) Glucose Level 103 mg/dL (70-99) Calcium Level 9.1 mg/dL (8.5-10.1) Magnesium Level 1.7 mg/dL (1.8-2.4) Total Bilirubin 0.4 mg/dL (0.2-1.0) Aspartate Amino Transf (AST/SGOT) 26 U/L (15-37) Alanine Aminotransferase (ALT/SGPT) 23 U/L (14-59) Alkaline Phosphatase 73 U/L (46-116) Troponin I Quantitative < 0.017 ng/mL (0.000-0.055) < 0.017 ng/mL (0.000-0.055) < 0.017 ng/mL (0.000-0.055) Total Protein 6.7 g/dL (6.4-8.2) Albumin 3.9 g/dL (3.4-5.0) Albumin/Globulin Ratio 1.4 (1.0-1.7) Test 04/22/19 02:00 04/22/19 08:08 04/22/19 11:59 04/22/19 20:59 Sodium Level 136 mmol/L (136-145) Potassium Level 3.0 mmol/L (3.5-5.1) Chloride Level 97 mmol/L (98-107) Carbon Dioxide Level 26 mmol/L (21-32) Anion Gap 13 (6-14) Blood Urea Nitrogen 13 mg/dL (7-20) Creatinine 0.5 mg/dL (0.6-1.0) Estimated GFR (Cockcroft-Gault) 122.3 Glucose Level 104 mg/dL (70-99) Calcium Level 9.1 mg/dL (8.5-10.1) Magnesium Level 2.0 mg/dL (1.8-2.4) Triglycerides Level 54 mg/dL (0-150) Cholesterol Level 163 mg/dL (0-200) LDL Cholesterol, Calculated 99 mg/dL (0-100) VLDL Cholesterol, Calculated 11 mg/dL (0-40) Non-HDL Cholesterol Calculated 110 mg/dL (0-129) HDL Cholesterol 53 mg/dL (40-60) Cholesterol/HDL Ratio 3.1 Vitamin B12 Level 305 pg/mL (247-911) Thyroid Stimulating Hormone (TSH) 0.886 uIU/mL (0.358-3.74) Glucose (Fingerstick) 133 mg/dL (70-99) 93 mg/dL (70-99) 118 mg/dL (70-99) Test 04/23/19 07:09 04/23/19 11:51 Glucose (Fingerstick) 110 mg/dL (70-99) 107 mg/dL (70-99) Laboratory Tests Test 04/22/19 20:59 04/23/19 07:09 04/23/19 11:51 Glucose (Fingerstick) 118 mg/dL (70-99) 110 mg/dL (70-99) 107 mg/dL (70-99) Brief Hospital Course Ms. Ramesh is a 68 old female who presented to the ER of [facility] with complaints of right shoulder pain radiated to the entire UE to fingers associated with numbness and weakness. She states that the pain has been shooting down her right arm and that she is having right hand numbness. The patient also reports that she felt a lump on her sternum last night. CV eval , r/o ACS, then neuro consujlt, eval for inflammatory dz listed above, will DC on steroid taper, see Dr. Saldaña next week Discharge Information Condition at Discharge: Improved Follow Up: Weeks Disposition/Orders: D/C to Home Scheduled Aspirin (Aspirin) 325 Mg Tablet, 1 TAB PO DAILY for , #30 Ref 5 (Reported) Entered as Reported by: ZUNILDA WATSON RN on 04/23/19 1158 Atorvastatin Calcium (Atorvastatin Calcium) 20 Mg Tablet, 1 TAB PO QHS for cholesterol, #30 Ref 5 (Reported) Entered as Reported by: JUAN MAGALLANES on 04/21/191950 Last Action: Continued on 04/22/191913 by HANNY TORRES Calcium Carbonate/Vitamin D3 (Calcium 600 + Vit D3 Tablet) 1 Each Tablet, 2 TAB PO QHS for supp for 30 Days, #60 Ref 0 (Reported) Entered as Reported by: JUAN MAGALLANES on 04/21/191950 Last Action: Converted on 04/22/191913 by HANNY TORRES Metformin Hcl (Metformin Hcl Er) 500 Mg Tab.er.24h, 500 MG PO DAILYWSUP for ANTI-DIABETIC, Ref 0 (Reported) Entered as Reported by: JUAN MAGALLANES on 04/21/191950 Last Action: Continued on 04/22/191913 by HANNY TORRES Multivits-Min/Iron/FA/Lutein (Centrum Silver Women Tablet) 1 Each Tablet, 1 EACH PO QHS for supp, (Reported) Entered as Reported by: JUAN MAGALLANES on 04/21/191950 Last Action: Converted on 04/22/191913 by HANNY TORRES Potassium Gluconate (Potassium Gluconate) 99 Mg Tablet, 99 MG PO DAILY for supp, (Reported) Entered as Reported by: JUAN MAGALLANES on 04/21/191950 Last Action: Converted on 04/22/191913 by HANNY TORRES Quinapril/Hydrochlorothiazide (Quinapril-Hctz 20-25 Mg Tab) 1 Each Tablet, 1 TAB PO DAILY for blood pressure for 30 Days, #30 Ref 0 (Reported) Entered as Reported by: JUAN MAGALLANES on 04/21/191950 Last Action: Converted on 04/22/191913 by HANNY TORRES Patient Instructions Patient Instructions MRI brachial plexus and urszula mullins, IMPRESSION: Mild degenerative changes of the cervical spine as described in detail No significant abnormality involving the right brachial plexus. MRI brain Impression: 1. There is no evidence of recent infarct or intracranial mass effect. MALICK RDZ MD Apr 23, 2019 13:56
== END 2019-04-23 14:49 | disposition home or self-care (01) | DRG 74 ==
LOC: ER 12:53 → 2 SOUTH 17:21
PROVIDERS: ADMIT Internal Medicine; ATTEND Internal Medicine
DX: G54.0 Brachial plexus disorders (principal); E87.1 Hypo-osmolality and hyponatremia; D72.829 Elevated white blood cell count, unspecified; E11.9 Type 2 diabetes mellitus without complications; E66.9 Obesity, unspecified; E78.00 Pure hypercholesterolemia, unspecified; E78.5 Hyperlipidemia, unspecified; G89.29 Other chronic pain; I10 Essential (primary) hypertension; M19.90 Unspecified osteoarthritis, unspecified site; Z96.653 Presence of artificial knee joint, bilateral; G54.5 Neuralgic amyotrophy; Z68.33 Body mass index [BMI] 33.0-33.9, adult; Z90.49 Acquired absence of other specified parts of digestive tract; Z98.51 Tubal ligation status; Z88.5 Allergy status to narcotic agent
CPT/HCPCS: 36415; 70450; 70551; 71046; 71550; 72141; 80048; 80053; 80061; 82607; 82962; 83735; 84443; 84484; 85025; 85379; 85610; 85730; 93005; J1650; J1885; J2405; J3010; J7512; G0378; J8597